=== PATIENT | female | born 1945 | race Caucasian/White ===

== ENCOUNTER 2020-05-25 10:32 | Outpatient (CLI) | payer MEDICARE, OTHER, SELFPAY ==
--- NOTE | ~2020-05-25 | MM_ITS ---
EXAMINATION: MM screening [facility] BI w radha HISTORY: Screening mammogram TECHNIQUE: Craniocaudal and mediolateral oblique 3-D tomosynthesis images were obtained and synthetic 2-D images were generated. CAD analysis was submitted and interpreted. COMPARISON: 05/10/2019, 04/06/2018, 12/09/2016 BREAST PARENCHYMAL COMPOSITION: There are scattered areas of fibroglandular density. FINDINGS: There is no evidence of suspicious mass, calcification, or architectural distortion to sugg est malignancy in either breast. There has been no suspicious interval change. IMPRESSION: 1. No mammographic evidence of malignancy. 2. Recommend routine screening mammography in one year. BI-RADS Category 1: Negative Reviewed, dictated and finalized at location A.
--- NOTE | ~2020-05-25 | CT_ITS ---
EXAMINATION:CT lung screening DATE: 05/25/2020 11:18 INDICATION: Personal history of nicotine dependence. Smoker who quit 15 years ago with 30 pack year h istory. TECHNIQUE: Computed tomography (CT) of the chest was performed without intravenous contrast. Automate d exposure control and iterative reconstruction technique were employed. The dose-length product (DLP ) was 59.41 mGy-cm. COMPARISON: Chest CT 05/10/2019 FINDINGS: There are widespread chronic peripheral reticular opacities in the lungs associated with re latively mild groundglass opacities, consistent with chronic interstitial lung disease in a pattern o f usual interstitial pneumonia (UIP) versus nonspecific interstitial pneumonia (NSIP). No bronchiecta sis or honeycombing. There is mild emphysema. No pleural effusion. The heart size is normal. There ar e coronary artery calcifications. No pericardial effusion. There are gallstones in the gallbladder, w hich is normal in size. There is mild thoracic spondylosis. IMPRESSION: 1. Lung-RADS category 2: Benign appearance or behavior. Reviewed, dictated and finalized at location A.
== END 2020-05-25 10:33 | disposition home or self-care (01) ==
LOC: ANHIMG 10:34
PROVIDERS: PCP Family Medicine; Visit Provider Physician Assistant
DX: Z12.31 Encounter for screening mammogram for malignant neoplasm of breast (principal); Z12.2 Encounter for screening for malignant neoplasm of respiratory organs; Z87.891 Personal history of nicotine dependence
CPT/HCPCS: 77063; 77067; G0297

== ENCOUNTER 2021-06-16 12:10 | Outpatient (CLI) | payer MEDICARE, OTHER, SELFPAY ==
--- NOTE | ~2021-06-16 | MM_ITS ---
EXAMINATION: MM screening [facility] BI w radha HISTORY: Screening mammogram TECHNIQUE: Craniocaudal and mediolateral oblique 3-D tomosynthesis images were obtained and synthetic 2-D images were generated. CAD analysis was submitted and interpreted. COMPARISON: 05/25/2020, 05/10/2019, 04/06/2018 bilateral digital screening mammogram examinations BREAST PARENCHYMAL COMPOSITION: The breasts are heterogeneously dense, which may obscure small masses . FINDINGS: There is a biopsy marker on the left; history of prior benign left breast biopsy. Occasional bilateral calcified microhematomas. There is no evidence of suspicious mass, calcification , or architectural distortion to suggest malignancy in either breast. There has been no suspicious in terval change. IMPRESSION: 1. No mammographic evidence of malignancy. 2. Recommend routine screening mammography in one year. BI-RADS Category 2: Benign finding(s). Reviewed, dictated and finalized at location A.
--- NOTE | ~2021-06-16 | CT_ITS ---
EXAMINATION: CT lung screening DATE: 06/16/2021 13:30 INDICATION: Personal history of nicotine dependence, prior smoker with 50 pack year history TECHNIQUE: Computed tomography (CT) of the chest was performed without intravenous contrast. The dose -length product (DLP) was 59.53 mGy-cm. Automated exposure control and iterative reconstruction techn [employer] were employed. COMPARISON: 05/25/2020 FINDINGS: There are stable, chronic subpleural reticular and groundglass opacities without significan t change usual interstitial pneumonia (UIP) versus nonspecific interstitial pneumonia (NSIP). No susp icious pulmonary nodules are identified. There is no pleural effusion or pneumothorax. No pathologica lly enlarged thoracic lymph nodes are identified. The heart size is normal. There is a small amount o f secretions in the trachea. Stones are present in the nondistended gallbladder. There is a new L1 co mpression fracture. IMPRESSION: 1. Lung-RADS category 1S: Negative. Continue annual screening with noncontrast low-dose chest CT in 1 2 months. 2. Age-indeterminate L1 compression fracture, new since the comparison examination. Reviewed, dictated and finalized at location A. IMPRESSION: 1. Lung-RADS category 1S: Negative. Continue annual screening with noncontrast low-dose chest CT in 12 months. 2. Age-indeterminate L1 compression fracture, new since the comparison examinat ion.
== END 2021-06-16 12:11 | disposition home or self-care (01) ==
PROVIDERS: PCP Family Medicine; Visit Provider Family Medicine
DX: Z12.2 Encounter for screening for malignant neoplasm of respiratory organs (principal); Z12.31 Encounter for screening mammogram for malignant neoplasm of breast; Z87.891 Personal history of nicotine dependence
CPT/HCPCS: 71271; 77063; 77067

== ENCOUNTER 2021-08-04 14:14 | Outpatient (CLI) | payer MEDICARE, OTHER, SELFPAY ==
--- NOTE | ~2021-08-04 | DEXA_ITS ---
Bone Density Report Name: MAXINE AGOSTO Age: 76 Sex: Female Ethnicity: White Date of : 1945 Indication: osteopenia; monitoring treatment; parental hip fracture; height loss; prior fracture; postmenopausal Referring Provider: Tino Khalil Study: Bone densitometry was performed. Exam Date: August 04, 2021 Accession number: [id number] Bone Density: Region BMD T-score Z-score Classification AP Spine (L2, L4) 1.042 -0.3 2.2 Normal Femoral Neck (Left) 0.597 -2.3 -0.1 Osteopenia Total Hip (Left) 0.740 -1.7 0.2 Osteopenia Total Hip Bilateral Avg 0.714 -1.9 0.0 Osteopenia Femoral Neck (Right) 0.610 -2.2 0.0 Osteopenia Total Hip (Right) 0.686 -2.1 -0.2 Osteopenia World Health Organization criteria for BMD impression classify patients as: Normal (T-score at or above -1.0), Osteopenia (T-score between -1.0 and -2.5), or Osteoporosis (T-score at or below -2.5). 10-year Fracture Risk: FRAX not reported because: Prior hip or vertebral fracture Previous Exams: Region Exam Age BMD T-score BMD Change BMD Change Date g/cm2 vs Baseline vs Previous AP Spine(L2, L4) 08/04/2021 76 1.042 -0.3 0.098(10.4%)# 0.124(13.5%)* 05/10/2019 74 0.917 -1.5 -0.026(-2.8%)# -0.014(-1.5%) 11/18/2016 71 0.931 -1.3 -0.013(-1.3%)# 0.057(6.5%)* 04/04/2014 68 0.874 -1.8 -0.069(-7.3%)# -0.144(-14.1%) 02/06/2010 64 1.018 -0.5 0.075(7.9%)* 0.021(2.1%) 01/20/2007 61 0.998 -0.7 0.054(5.7%)* 0.054(5.7%)* 11/05/2004 59 0.944 -1.2 Total Hip(Left) 08/04/2021 76 0.740 -1.7 0.029(4.1%)# 0.048(6.9%)* 05/10/2019 74 0.693 -2.0 -0.018(-2.6%)# -0.035(-4.8%)* 11/18/2016 71 0.728 -1.8 0.017(2.4%)# 0.079(12.1%)* 04/04/2014 68 0.649 -2.4 -0.062(-8.7%)# -0.063(-8.9%)# 02/06/2010 64 0.712 -1.9 0.001(0.2%) -0.037(-4.9%)* 01/20/2007 61 0.749 -1.6 0.038(5.4%)* 0.038(5.4%)* 11/05/2004 59 0.711 -1.9 Total Hip(Right) 08/04/2021 76 0.686 -2.1 -0.040(-5.5%)# -0.063(-8.5%)* 05/10/2019 74 0.750 -1.6 0.023(3.2%)# -0.036(-4.6%)* 11/18/2016 71 0.786 -1.3 0.059(8.1%)# 0.055(7.5%)* 04/04/2014 68 0.731 -1.7 0.004(0.6%)# -0.015(-2.1%)# 02/06/2010 64 0.746 -1.6 0.020(2.7%) -0.011(-1.4%) 01/20/2007 61 0.757 -1.5 0.031(4.2%)* 0.031(4.2%)* 11/05/2004 59 0.727 -1.8 *Denotes significance at 95% confidence level, LSC for AP Spine = 0.022 g/cm2, LSC for Total Hip = 0.027 g/cm2 Clinical Information Provided by Patient:
== END 2021-08-04 14:15 | disposition home or self-care (01) ==
LOC: ANHIMG 14:17
PROVIDERS: PCP Family Medicine; Visit Provider Physician Assistant Medical
DX: Z78.0 Asymptomatic menopausal state (principal); M85.852 Other specified disorders of bone density and structure, left thigh; M85.851 Other specified disorders of bone density and structure, right thigh
CPT/HCPCS: 77080

== ENCOUNTER 2022-06-19 07:29 | Outpatient (CLI) | payer MEDICARE, SELFPAY ==
--- NOTE | ~2022-06-19 | MR_ITS ---
EXAMINATION: MR brain/brain stem wo/w con DATE: 06/19/2022 08:31 INDICATION: Ataxia. TECHNIQUE: Magnetic resonance imaging (MRI) of the brain and brainstem was performed without and with 13 mL MultiHance intravenous contrast. COMPARISON: None. FINDINGS: There are scattered areas of nonspecific increased T2-weighted signal intensity in the cere bral white matter and merry. There are small old infarcts in left cerebellum. There is no intracranial hemorrhage, acute infarction, or abnormal intracranial mass lesion. The ventricles are normal in siz e. There is mucosal thickening in the paranasal sinuses. The orbits are normal. The mastoid air cells are normal. IMPRESSION: 1. 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 2. Moderate nonspecific cerebral white matter disease and pontine disease, which likely represents ch ronic small vessel ischemic disease. Reviewed, dictated and finalized at location A. IMPRESSION: 1. 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 2. Moderate nonspecific cerebral white matter disease and pontine disease, whic h likely represents chronic small vessel ischemic disease.
== END 2022-06-19 07:30 | disposition home or self-care (01) ==
PROVIDERS: PCP Family Medicine; Visit Provider Family Medicine
DX: R27.0 Ataxia, unspecified (principal); R93.0 Abnormal findings on diagnostic imaging of skull and head, not elsewhere classified
CPT/HCPCS: 70553; A9577

== ENCOUNTER 2022-07-11 10:07 | Outpatient (CLI) | payer MEDICARE, SELFPAY ==
--- NOTE | ~2022-07-11 | MM_ITS ---
EXAMINATION: MM screening [facility] BI w radha HISTORY: Screening TECHNIQUE: Craniocaudal and mediolateral oblique 3-D tomosynthesis images were obtained and synthetic 2-D images were generated. CAD analysis was submitted and interpreted. COMPARISON: Comparison to multiple prior studies sequentially, with oldest reviewed study dated 12/21. BREAST PARENCHYMAL COMPOSITION: There are scattered areas of fibroglandular density. FINDINGS: There is developing asymmetry in the subareolar location of the left breast. The right keyanna st is stable without evidence for malignancy. IMPRESSION: 1. Developing left breast asymmetry. 2. Additional mammographic views and possible breast ultrasound are recommended. BI-RADS Category 0: Incomplete: Needs additional imaging evaluation. Reviewed, dictated and finalized at location A. ENTRY INSTRUCTOR IMPRESSION: 1. Developing left breast asymmetry. 2. Additional mammographic views and possible breast ultrasound are recommended . BI-RADS Category 0: Incomplete: Needs additional imaging evaluation.
--- NOTE | ~2022-07-11 | XR_ITS ---
XR hip RT min 3V w AP pelvis DATE: 07/11/2022 11:06 INDICATION: Multiple falls. Pain and cramping and right hip TECHNIQUE: AP pelvis. AP, lateral and crosstable lateral views of right hip COMPARISON: None FINDINGS: There is osteopenia. Normal alignment at the pubic symphysis and sacroiliac joints. Mild bilateral hip osteoarthritis. No fracture or dislocation, avascular necrosis or bone destruction of the right hip. IMPRESSION: Osteopenia Mild bilateral hip osteoarthritis Reviewed, dictated and finalized at location A. E REPAIRER
--- NOTE | ~2022-07-11 | CT_ITS ---
EXAMINATION: CT lung screening DATE: 07/11/2022 10:52 INDICATION: Personal history nicotine dependence, prior smoker with 30 pack year history TECHNIQUE: Computed tomography (CT) of the chest was performed without intravenous contrast. The dose -length product (DLP) was 71.76 mGy-cm. Automated exposure control and iterative reconstruction techn [employer] were employed. COMPARISON: 06/16/2021 FINDINGS: No suspicious pulmonary nodules are identified. Again noted are chronic subpleural reticula r and groundglass opacities which could reflect usual interstitial pneumonia (UIP) versus nonspecific interstitial pneumonia (NSIP). No pleural effusion or pneumothorax. No pathologically enlarged thora cic lymph nodes are identified. The heart size is normal. Calcified coronary artery atherosclerosis i s noted. Stones are present in the nondistended gallbladder. There is a small sliding hiatal hernia. Healed right-sided rib fractures are noted. An L1 compression fracture is not significantly changed. IMPRESSION: 1. Lung-RADS category 1: Negative. Continue annual screening with noncontrast low-dose chest CT in 12 months. Reviewed, dictated and finalized at location F. RAL ARTS TEACHER IMPRESSION: 1. Lung-RADS category 1: Negative. Continue annual screening with noncontrast l ow-dose chest CT in 12 months.
== END 2022-07-11 10:08 | disposition home or self-care (01) ==
LOC: ANHIMG 10:09
PROVIDERS: PCP Family Medicine; Visit Provider Family Medicine
DX: Z12.31 Encounter for screening mammogram for malignant neoplasm of breast (principal); Z12.2 Encounter for screening for malignant neoplasm of respiratory organs; Z87.891 Personal history of nicotine dependence; R92.8 Other abnormal and inconclusive findings on diagnostic imaging of breast; M16.0 Bilateral primary osteoarthritis of hip; M85.851 Other specified disorders of bone density and structure, right thigh
CPT/HCPCS: 71271; 73502; 77063; 77067

== ENCOUNTER 2022-08-01 13:04 | Outpatient (CLI) | payer MEDICARE, SELFPAY ==
--- NOTE | ~2022-08-01 | MM_ITS ---
EXAMINATION: MM diagnostic [facility] LT w radha HISTORY: Left breast asymmetry on screening mammogram TECHNIQUE: Additional 3-D tomosynthesis images of the left breast were performed and synthetic 2-D im ages were generated. CAD analysis was submitted and interpreted. COMPARISON: 07/11/2022, 06/16/2021, 05/25/2020, 05/10/2019, 04/06/2018 FINDINGS: There is a return to baseline fibroglandular appearance with spot compression of the left b reast in the area questioned on screening mammogram. IMPRESSION: 1. No mammographic evidence of malignancy. 2. Recommend routine screening mammography in one year. BI-RADS Category 1: Negative Reviewed, dictated and finalized at location A. PACKER
== END 2022-08-01 13:05 | disposition home or self-care (01) ==
PROVIDERS: PCP Family Medicine; Visit Provider Family Medicine
DX: R92.8 Other abnormal and inconclusive findings on diagnostic imaging of breast (principal)
CPT/HCPCS: 77061; 77065; G0279

== ENCOUNTER 2022-08-10 13:41 | Outpatient (CLI) | payer MEDICARE, OTHER, SELFPAY ==
--- NOTE | ~2022-08-10 | MR_ITS ---
MRI of the right hip Clinical history: Right hip pain Technique: Coronal T1-weighted, T2-weighted, and proton density fat-sat images, and axial T1-weighted and proton-density fat-sat images were acquired through the pelvis. Coronal T2-weighted and proton-d ensity fat-sat images were acquired through the right hip. Sagittal and axial proton density fat-sat images were acquired through the right hip. Findings: There is no fracture, avascular necrosis, or transient osteoporosis of either hip. Bone mar row signals in the proximal femora and visualized pelvic bones are unremarkable. There is moderate right hip joint effusion. There is probable diffuse chondromalacia of the right hip joint with small osteophyte formation at the right femoral head neck junction and from the lateral m argin of the acetabular roof. There is probable minimal edematous change in the right gluteus minimus muscle, as well as in the rig ht pectineus muscle. Remaining musculature demonstrates normal signal intensity. Visualized tendons a ppear intact. No soft tissue mass identified. IMPRESSION: Mild osteoarthritic change of the right hip joint, as detailed above. Moderate right hip joint effusion, nonspecific. This is possibly reactive due to underlying osteoarth ritis. If there is any clinical concern for early septic arthritis, then joint aspiration would be in dicated. No MR evidence for osteomyelitis or bony erosive changes at this time. Minimal edematous change of the right gluteus minimus and right pectineus muscles, nonspecific. No fracture or avascular necrosis. Reviewed, dictated and finalized at location [] DESTRUCTIVE EVALUATION SPECIALIST IMPRESSION: Mild osteoarthritic change of the right hip joint, as detailed above. Moderate right hip joint effusion, nonspecific. This is possibly reactive due t o underlying osteoarthritis. If there is any clinical concern for early septic arthritis, then joint aspiration would be indicated. No MR evidence for osteomy elitis or bony erosive changes at this time. Minimal edematous change of the right gluteus minimus and right pectineus muscl es, nonspecific. No fracture or avascular necrosis.
== END 2022-08-10 13:42 | disposition home or self-care (01) ==
PROVIDERS: PCP Family Medicine; Visit Provider Orthopaedic Surgery
DX: M16.11 Unilateral primary osteoarthritis, right hip (principal); M25.451 Effusion, right hip
CPT/HCPCS: 73721

== ENCOUNTER 2022-10-09 09:31 | Outpatient (CLI) | payer MEDICARE, SELFPAY ==
--- NOTE | ~2022-10-09 | MR_ITS ---
MRI of the lumbar spine Clinical History: Ataxia Technique: Axial T2-weighted images, and sagittal T1-weighted, T2-weighted, and T2 fat-sat images wer e acquired. Findings: Chronic moderate compression fracture deformity of L1 is present, without marrow edema. Chr onic mild compression fracture at the inferior endplate region of L3 present, again, without marrow e angel. No acute bone marrow edema or other bone marrow signal abnormality seen. No subluxation evident . At L1-L2, there is mild facet arthropathy. No definite disc bulge or herniation. No spinal canal sten osis or right neural foraminal narrowing. There is mild left neural foraminal narrowing. At L2-L3, there is mild diffuse disc bulge with mild facet joint hypertrophy. No spinal canal stenosi s or neural foraminal narrowing. At L3-L4, there is disc bulge and facet arthropathy, with minimal central canal stenosis. There is mo derate bilateral neural foraminal narrowing. At L4-L5, there is disc bulge and facet arthropathy. No nina spinal canal stenosis. Bilateral neural foramina are preserved. At L5-S1, there is minimal disc bulge with facet arthropathy. No spinal canal stenosis. Probable mini mal bilateral neural foraminal narrowing. Paravertebral soft tissues are unremarkable. Impression: Chronic compression fractures of L1 and L3, as detailed above. Mild degenerative spondylitic changes, as detailed above. Reviewed, dictated and finalized at [facility]. CAMP COUNSELOR Impression: Chronic compression fractures of L1 and L3, as detailed above. Mild degenerative spondylitic changes, as detailed above.
== END 2022-10-09 09:32 | disposition home or self-care (01) ==
LOC: ANHIMG 09:33
PROVIDERS: PCP Family Medicine; Visit Provider Student in an Organized Health Care Education/Training Program
DX: R27.0 Ataxia, unspecified (principal); M47.816 Spondylosis without myelopathy or radiculopathy, lumbar region; M48.56XA Collapsed vertebra, not elsewhere classified, lumbar region, initial encounter for fracture
CPT/HCPCS: 72148

== ENCOUNTER 2022-11-14 10:10 | Outpatient (CLI) | payer MEDICARE, SELFPAY ==
--- NOTE | 2022-11-14 11:00 | NEURO_ITS ---
Impression: # Complains of right lower extremity weakness. Awaiting right hip surgery. # Normal nerve conduction study. # Decreased motor unit potentials without neurogenic changes in right Quad could be related to disuse due to pain. # Clinical correlation recommended. Motor Nerve Conduction Lower Extremities Peroneal Nerve Conduction Velocity (m/sec) Terminal Latency (msec) Response Voltage(mV) Popliteal space-Ankle Ankle Extensor Dig Brevis Popliteal space Ankle Right 45 4.5 1 1 Left 46 4.0 1 2 Tibial Nerve Conduction Velocity (m/sec) Terminal Latency (msec) Response Voltage(mV) Popliteal space-Ankle Ankle-Extensor Dig Brevis Popliteal space Ankle Right 43 4.6 1 1 Left 45 4.7 2 1 F-waves Peroneal Nerve (ms) Tibial Nerve (ms) Right 54.9 54.5 Left 54.9 55.4 Sensory Nerve Conduction Lower Extremities Sural Nerve Stimulation Terminal Latency (msec) Ankle Response Voltage (uV) Ankle Response Velocity (m/sec) Right 4.0 16 40 Left 3.8 8 42 Superficial Peroneal Nerve Stimulation Terminal Latency (msec) Ankle Response Voltage (uV) Ankle Response Velocity (m/sec) Right 3.6 15 44 Left 3.9 10 41 Left Right Muscles Examined Fibrillation Fasciculation Scarcity Voltage Duration Left Right Left Right Left Right Left Right Left Right X X Ant Tibialis X X Gastroc X X Fibularis Long X X Flex Dig Long X X Ext Dig Brev Abd Hallucis X X Quadriceps Paraspinals MTDD
== END 2022-11-14 10:11 | disposition home or self-care (01) ==
LOC: ANHNEURO 10:14
PROVIDERS: PCP Family Medicine; Visit Provider Student in an Organized Health Care Education/Training Program
DX: R26.89 Other abnormalities of gait and mobility (principal)
CPT/HCPCS: 95886; 95910

== ENCOUNTER 2022-12-16 12:00 | Outpatient (CLI) | payer MEDICARE, SELFPAY ==
--- NOTE | ~2022-12-16 | XR_ITS ---
EXAMINATION: XR lg joint inject/asp w image DATE: 12/16/2022 13:19 INDICATION: Right hip osteoarthritis. TECHNIQUE: A time-out was performed to verify the patient's name, date of , and procedure to b e performed. The procedure including the risks, benefits, and alternatives was discussed with the pat ient. Risks discussed included bleeding and infection. The patient understood the risks and agreed to proceed. The skin overlying the right hip joint was prepped and draped in usual sterile fashion. A nesthetic was administered with 0.5% Marcaine subcutaneously. A 22 G needle was advanced under fluor oscopic guidance into the joint. Injection of 1 mL of Omnipaque 240 confirmed intra-articular positi on of the needle. Subsequently, injectate consisting of 3 mL of a 2:1 mixture of 0.5% Marcaine: 80 m g/mL Depo-Medrol for a total dosage of 80 mg Depo-Medrol was instilled. Washout of contrast was seen confirming intra-articular administration. The needle was removed and the entry site was cleaned and dressed. There were no immediate complications. Fluoroscopy exposure time was 0.2 minutes. The total number of images was 2. FINDINGS: Real-time fluoroscopy demonstrates the needle in the right hip joint. Patient's pain prior to procedure:8/10. Patient's pain following the procedure: 6/10. IMPRESSION: 1. Successful right hip joint injection of local anesthetic and steroid with mild decrease in the pat ient's presenting pain. Reviewed, dictated and finalized at location A. IMPRESSION: 1. Successful right hip joint injection of local anesthetic and steroid with mi ld decrease in the patient's presenting pain.
== END 2022-12-16 12:01 | disposition home or self-care (01) ==
PROVIDERS: PCP Family Medicine; Visit Provider Nurse Practitioner Family
DX: M16.11 Unilateral primary osteoarthritis, right hip (principal)
CPT/HCPCS: 20610; 77002; J1040; Q9966

== ENCOUNTER 2023-01-13 12:00 | Outpatient (CLI) | payer MEDICARE, SELFPAY ==
--- NOTE | ~2023-01-13 | US_ITS ---
US renal BI 01/13/2023 12:35 Procedure: Realtime transabdominal ultrasound of the kidneys and bladder. Indication: Abnormal renal function tests Comparison: 04/28/2017 Findings: Renal echotexture is normal bilaterally without hydronephrosis, contour deforming mass or r enal calculus. There is a right renal cyst measuring 7 mm. The right kidney measures 8.6 cm and left kidney measures 9.4 cm. Bladder within normal limits. Impression: 1: Unremarkable renal ultrasound. No stones, masses or hydronephrosis. Reviewed, dictated and finalized at location B. Impression: 1: Unremarkable renal ultrasound. No stones, masses or hydronephrosis.
== END 2023-01-13 12:01 | disposition home or self-care (01) ==
PROVIDERS: PCP Family Medicine; Visit Provider Internal Medicine Nephrology
DX: R94.4 Abnormal results of kidney function studies (principal); N18.31 Chronic kidney disease, stage 3a
CPT/HCPCS: 76775

== ENCOUNTER 2023-02-05 16:26 | Emergency (ER) | payer MEDICARE, SELFPAY ==
[2023-02-05] VITALS (7 sets, daily range): BP systolic 166–184; BP diastolic 73–105; PULSE 83–97; RESP 18–20; TEMP 36.8; O2SAT 96–97
--- NOTE | ~2023-02-05 | XR_ITS ---
XR chest 1V DATE: 02/05/2023 16:39 INDICATION: Cerebrovascular accident TECHNIQUE: AP chest on 02/05/2023 at 1637 hours COMPARISON: 07/11/2022 CT chest FINDINGS: Increased density at posterior right eighth and ninth ribs associated with callus formation from old rib fractures, confirmed on 07/11/2022 CT thorax. There are old left rib fractures as well. There is osteopenia. Heart size is within normal limits. Is aortic calcification and unfolding. No hilar or mediastinal en largement. No pulmonary infiltrate or consolidation, pleural effusion or pulmonary vascular congestion or pneumo thorax. IMPRESSION: No active cardiac pulmonary disease Aortic atherosclerosis Reviewed, dictated and finalized at location A.
--- NOTE | ~2023-02-05 | CT_ITS ---
EXAMINATION: CTA brain carotid DATE: 02/05/2023 18:42 INDICATION: Acute cerebrovascular accident. TECHNIQUE: Computed tomographic angiography (CTA) of the head was performed with 100 mL Omnipaque-350 intravenous contrast. CTA of the neck was performed with intravenous contrast. Automated exposure co ntrol and iterative reconstruction technique were employed. The dose-length product was 1111.53 mGy-c m. Maximum intensity projection and volume rendered 3D-reconstructions were created by the technologi st on a separate workstation. COMPARISON: Head CT 02/05/2023, brain MRI 06/19/2022 FINDINGS: HEAD CTA: There are scattered areas of low attenuation in the cerebral white matter. There are small old infarcts in left cerebellum. There is no acute ischemic infarct or abnormal mass lesion. The vent ricles are normal in size. The orbits are normal. There is mucosal thickening in the paranasal sinuse s. There is thickening and sclerosis of the allan of the maxillary sinuses, which may be old fracture s or chronic sinusitis. The mastoid air cells are normal. The vertebral arteries are codominant. Ther e is no significant stenosis of basilar artery or the posterior cerebral arteries. There is no signif icant stenosis of the intracranial internal carotid arteries or anterior or middle cerebral arteries. Anterior communicating artery is normal. There is a 2 mm infundibulum at the origin of right posteri or communicating artery. Left posterior communicating artery is normal. There is no aneurysm. NECK CTA: There is mild emphysema. There is mild scarring at the lung apices. There are no pathologic ally enlarged lymph nodes. There is no significant stenosis of the vertebral arteries. There is plaqu e in the proximal internal carotid arteries. There is 0% stenosis of the proximal right internal gtz tid artery relative to normal distal artery lumen diameter (NASCET criteria). There is 0% stenosis of the proximal left internal carotid artery relative to normal distal artery lumen diameter. There is severe cervical spondylosis. IMPRESSION: 1. Small old infarcts in the left cerebellum. 2. Moderate nonspecific cerebral white matter disease, which likely represents chronic small vessel i schemic disease. 3. No aneurysm or significant intracranial internal stenosis. 4. 0% stenosis of the proximal internal carotid arteries relative to normal distal artery lumen diame ters (NASCET criteria). Reviewed, dictated and finalized at location A. IMPRESSION: 1. Small old infarcts in the left cerebellum. 2. Moderate nonspecific cerebral white matter disease, which likely represents chronic small vessel ischemic disease. 3. No aneurysm or significant intracranial internal stenosis. 4. 0% stenosis of the proximal internal carotid arteries relative to normal dis flo artery lumen diameters (NASCET criteria).
--- NOTE | ~2023-02-05 | CT_ITS ---
EXAMINATION: CT brain wo con DATE: 02/05/2023 16:36 INDICATION: Left hemiparesis. Hypertension. TECHNIQUE: Computed tomography (CT) of the head was performed without intravenous contrast. The mA wa s adjusted according to patient size. Iterative reconstruction technique was employed. Exam dose: 75 6.67 mGy-cm total exam DLP. COMPARISON: 05/24/2008 CT brain FINDINGS: Examination is limited by patient motion. There are bilateral vertebral artery and particularly prominent bilateral carotid siphon artery calci fications. Is nonspecific diminished attenuation of the cerebral white matter, likely due to chronic small vessel ischemic changes. There is central and cortical cerebral atrophy. No intracranial mass lesion or hemorrhage, midline shift or mass effect effect or subdural or epidura l hematoma is detected. There is some irregular soft tissue thickening in the posterior left maxillary antrum and mild fluid and/or soft tissue thickening in the posterior aspect of each sphenoid sinus. The paranasal sinuses a nd mastoid air cells are otherwise unremarkable. No fracture or bone destruction of the cranial vault. IMPRESSION: Cerebral atherosclerosis and chronic small vessel ischemic changes of the cerebral white matter Central and cortical cerebral atrophy No acute intracranial finding Reviewed, dictated and finalized at Location A. Reviewed, dictated and finalized at location A.
--- NOTE | 2023-02-05 16:28 | ECG_ITS ---
Measurements Intervals [place] Rate: 76 P: 51 NH: 178 QRS: 45 QRSD: 73 T: 47 QT: 356 QTc: 402 Interpretive Statements SINUS RHYTHM NORMAL ELECTROCARDIOGRAM NO PREVIOUS ECG AVAILABLE FOR COMPARISON Electronically Signed On 02-06-2023 11:17:17 CDT by Vitaly Rios M.D.
--- NOTE | 2023-02-05 16:55 | ED.NEUROSD ---
HPI - Neuro Symptoms/Deficit General Chief Complaint: Suspected CVA Stated Complaint: cva Time Seen by Provider: 02/05/23 16:39 Source: patient, family and EMS Mode of arrival: EMS History of Present Illness HPI Narrative: 77 years old white female came to the emergency room from home by ambulance because of slurred speech and weakness of the left upper extremity. Patient reports could not sleep all night long because of chronic exaggeration of pain at the right hip area secondary to rheumatoid arthritis. 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 Patient has been noticed that the patient's speech a little bit slurry at 2 PM. Last time he carried a normal conversation with her was 2 hours earlier. Basically at 12 noon. Currently patient feels that the weakness of the left upper extremity is a little bit better than before but still weak. People unable to manage moving her fingers or to extend her fingers.. History of rheumatoid arthritis, hypertension, hyperlipidemia patient currently on aspirin, been on steroids for over 1 year, currently on 7 mg daily. Her blind escort at [facility]. She denies any tingling or numbness or headache or recent trauma. Last hydrocodone intake was 5 PM last night. Related Data Home Medications Medication Instructions Recorded Confirmed aspirin 81 mg tablet,delayed 81 mg PO DAILY 10/02/19 09/07/22 release (Adult Low Dose Aspirin) latanoprost 0.005 % eye drops 1 drop ophthalmic (eye) DAILY 10/02/19 09/07/22 [id number]-[id number] 1 tablet PO DAILY 12/07/21 09/07/22 tablet (Multivitamin 50 Plus tablet) ascorbate calcium (vitamin C) 500 500 mg PO DAILY 08/10/22 09/07/22 mg tablet biotin 5,000 mcg disintegrating 5,000 mcg PO DAILY 08/10/22 09/07/22 tablet calcium carbonate 600 mg-vitamin 1 tablet PO DAILY 08/10/22 09/07/22 D3 10 mcg (400 unit) tablet (Calcium 600 + D(3)) denosumab 60 mg/mL subcutaneous 60 mg subcut [id number] 08/10/22 09/07/22 syringe (Prolia) prednisone 10 mg tablet 7 mg PO DAILY 09/21/22 leflunomide 10 mg tablet 10 mg PO DAILY 11/30/22 Allergies Allergy/AdvReac Type Severity Reaction Status Date / Time lidocaine Allergy Unknown Spasms Verified 02/05/23 17:04 tramadol Allergy Unknown Nausea Verified 02/05/23 17:04 trolamine salicylate Allergy Unknown Spasms Verified 02/05/23 17:04 [Aspercreme] Review of Systems Review of Systems: All systems reviewed & are unremarkable except as noted in HPI and below PMFSH Past Medical History Medical History Arthritis of right hip Degenerative joint disease (DJD) of hip Dental infection Family history of alpha 1 antitrypsin deficiency Giant cell aortic arteritis Nicotine dependence Osteoporosis Squamous cell carcinoma Temporal arteritis TIA (transient ischemic attack) Surgical History Surgical History History of foot surgery History of oral surgery History of temporal artery biopsy Family History Family History Grandparent Family history of glaucoma Family history of aortic aneurysm Hypertension Mother Family history of glaucoma, Onset Age: 93 Hypertension, Onset Age: 93 Father Hypertension, Onset Age: 78 Family history of aortic aneurysm, Onset Age: 78 Other Cerebrovascular accident Family history of osteoporosis Social History Social History Social History: Caffeine-coffee daily Years smoked: 50 Smoking status: Current every day smoker Tobacco type: cigarettes Second hand tobacco smoke exposure: Yes Alcohol intake: current Substance use: never Substance use type: does not use Lack of Transportation: No Lack of Food: Never True Current Ho
[2023-02-05 17:09] LABS: Glucose Point of Care 83 mg/dl (65-105)
[2023-02-05 17:19] LABS: Basophils Absolute Auto 0.1 K/mm3 (0.0-0.1); Basophils Percent Auto 0.8 % (0.2-1.2); Eosinophils Absolute Auto 0.5 K/mm3 (0-0.3); Eosinophils Percent Auto 6.1 % (0-4.4); Hematocrit 37.8 % (37.0-47.0); Hemoglobin 12.4 g/dL (12.0-15.0); Immature Granulocyte Absolute 0.03 K/mm3 (0.00-0.031); Immature Granulocyte Percent A 0.4 % (0-0.5); Lymphocytes Absolute Auto 1.31 K/mm3 (0.9-3.2); Lymphocytes Percent Auto 16.7 % (18.3-44.2); Mean Corpuscular HGB Conc 32.8 g/dl (32-36); Mean Corpuscular Hemoglobin 31.6 pg (26-34); Mean Corpuscular Volume 96.4 fl (80-100); Mean Platelet Volume 10.9 fl (7.4-10.4); Monocytes Absolute Auto 0.8 K/mm3 (0.1-0.6); Monocytes Percent Auto 10.6 % (2.6-8.5); Neutrophils Absolute Auto 5.2 K/mm3 (1.3-6.7); Neutrophils Percent Auto 65.4 % (45.5-73.1); Platelet Count Result 172 k/mm3 (150-375); Red Blood Count 3.92 M/mm3 (4.2-5.4); Red Cell Distribution Width 13.4 % (11.5-14.5); White Blood Count 7.9 K/mm3 (4.5-10.0)
[2023-02-05 17:29] LABS: INR 0.9; Prothrombin Time 12.8 Seconds (11.1-14.7)
[2023-02-05 17:30] LABS: Partial Thromboplastin Time 25.2 SECONDS (22.3-36.8)
[2023-02-05] MEDS: ASPIRIN 325 MG TABLET PO (17:56)
[2023-02-05 18:00] LABS: Alanine Aminotransferase 26 U/L (6-35); Albumin Level 3.7 g/dL (3.5-5.1); Alkaline Phosphatase 61 U/L (38-126); Anion Gap 1 mmol/L (8-16); Aspartate Amino Transferase 34 U/L (14-36); Bilirubin,Total 0.7 mg/dL (0.2-1.3); Blood Urea Nitrogen 18 mg/dL (7-17); Carbon Dioxide 30 mmol/L (22-30); Chloride 104 mmol/L (98-107); Estimated CRCL calculation 31 ml/min; Estimated Glomerular Filt Rate 48; Glucose 85 mg/dL (65-110); Potassium 3.9 mmol/L (3.4-5.0); Sodium 135 mmol/L (137-145)
[2023-02-05 18:11] LABS: Troponin I < 0.012 ng/mL (0.000-0.034)
--- NOTE | 2023-02-05 19:30 | PC.NURSE ---
This RN assumed care of patient.
--- NOTE | 2023-02-05 20:43 | ECG_ITS ---
Measurements Intervals [place] Rate: 94 P: 62 AR: 165 QRS: 56 QRSD: 78 T: 41 QT: 344 QTc: 430 Interpretive Statements SINUS RHYTHM NORMAL ELECTROCARDIOGRAM COMPARED TO ECG 02/05/2023 16:59:23 NO DIFFERENCE Electronically Signed On 02-10-2023 13:12:19 CDT by Vitaly Rios M.D.
--- NOTE | 2023-02-05 20:50 | PC.NURSE ---
This RN attempted to call report the [facility] ER at [phone] and was unsuccessful.
--- NOTE | 2023-02-05 21:00 | PC.NURSE ---
This RN gave report to Ina in the ED at [facility] ER.
== END 2023-02-05 21:09 | disposition short-term general hospital (02) ==
LOC: ANHED 17:27
PROVIDERS: Emergency Medicine; Emergency Provider Emergency Medicine; PCP Family Medicine
DX: I63.9 Cerebral infarction, unspecified (principal); R29.708 NIHSS score 8; I10 Essential (primary) hypertension; E78.5 Hyperlipidemia, unspecified; M06.9 Rheumatoid arthritis, unspecified; M31.6 Other giant cell arteritis; M16.11 Unilateral primary osteoarthritis, right hip; M81.0 Age-related osteoporosis without current pathological fracture; Z85.828 Personal history of other malignant neoplasm of skin; Z86.73 Personal history of transient ischemic attack (TIA), and cerebral infarction without residual deficits; Z79.82 Long term (current) use of aspirin; F17.210 Nicotine dependence, cigarettes, uncomplicated; I70.0 Atherosclerosis of aorta; I67.2 Cerebral atherosclerosis
CPT/HCPCS: 36415; 70450; 70496; 70498; 71045; 80053; 82948; 84484; 85025; 85610; 85730; 93005; 99285; A9270; Q9967

== ENCOUNTER 2023-02-09 09:50 | Inpatient (IN) | payer MEDICARE, SELFPAY ==
[2023-02-09] VITALS (24 sets, daily range): BP systolic 118–155; BP diastolic 60–80; PULSE 78–123; RESP 14–24; TEMP 36.3–36.6; O2SAT 95–98; BMI 20.7
--- NOTE | ~2023-02-09 | US_ITS ---
EXAMINATION: US carotid duplex BI DATE: 02/09/2023 22:59 INDICATION: Syncope. TECHNIQUE: Grayscale, color Doppler, and pulsed Doppler images of the cervical carotid arteries were obtained. The degree of vessel stenosis is placed in one of the following categories: normal, <50%, 5 0-69%, >=70% but less than near-occlusion, near-occlusion, or total occlusion. Note that percent sten osis relative to normal distal artery lumen diameter is indirectly measured from velocity measurement s as described by Sina, et al. Radiology 2003; 229:340-346. COMPARISON: CT abdomen and 02/05/2023 FINDINGS: RIGHT: The right common carotid artery (CCA) peak systolic velocity (PSV) is 69 cm/s. The right internal car otid artery (ICA) PSV is 74 cm/s. The right ICA end-diastolic velocity (EDV) is 18 cm/s. The right IC A/CCA PSV ratio is 1.1. Grayscale and color Doppler images yield an estimate of <50% diameter reducti on from plaque in the ICA. There is antegrade flow in the right vertebral artery. LEFT: The left CCA PSV is 44 cm/s. The left ICA PSV is 64 cm/s. The left ICA EDV is 12 cm/s. The left ICA/C CA PSV ratio is 1.4. Grayscale and color Doppler images yield an estimate of <50% diameter reduction from plaque in the ICA. There is antegrade flow in the left vertebral artery. IMPRESSION: 1. <50% stenosis in the right internal carotid artery. 2. <50% stenosis in the left internal carotid artery. Reviewed, dictated and finalized at location A.
--- NOTE | ~2023-02-09 | MR_ITS ---
EXAMINATION: MR brain/brain stem wo con DATE: 02/10/2023 13:37 INDICATION: Syncope. TECHNIQUE: Magnetic resonance imaging (MRI) of the brain and brainstem was performed without intraven ous contrast. COMPARISON: Brain MRI 06/19/2022, CT 02/09/2023 FINDINGS: There are patchy areas of acute infarct involving the right temporoparietal occipital regio n. There are small old infarcts in left cerebellum. There is no intracranial hemorrhage or abnormal m ass lesion. There are scattered areas of nonspecific increased T2-weighted signal intensity in the ce rebral white matter and merry. The ventricles are normal in size. The paranasal sinuses are clear. The orbits are normal. The mastoid air cells are normal. IMPRESSION: 1. Acute infarcts in right temporal parietal occipital region. 2. 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 3. Moderate nonspecific cerebral white matter disease and pontine disease, which likely represents ch ronic small vessel ischemic disease. Reviewed, dictated and finalized at location A. IMPRESSION: 1. Acute infarcts in right temporal parietal occipital region. 2. 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 3. Moderate nonspecific cerebral white matter disease and pontine disease, whic h likely represents chronic small vessel ischemic disease.
--- NOTE | ~2023-02-09 | XR_ITS ---
XR hip RT 2V w AP pelvis 02/10/2023 13:49 Indication: Right hip pain Procedure: 3 views right hip including AP pelvis Comparison: 09/07/2022 Findings: Severe osteoarthritis of the right hip. There is been remodeling of the femoral head with u nderlying sclerosis, consistent with avascular necrosis. No acute fracture is identified. No soft tis sivan abnormality. No foreign bodies. Impression: 1: Remodeling of the right femoral head developing sclerosis, consistent with avascular necrosis. 2: Severe osteoarthritis of the right hip. Reviewed, dictated and finalized at location [] Impression: 1: Remodeling of the right femoral head developing sclerosis, consistent with a vascular necrosis. 2: Severe osteoarthritis of the right hip.
--- NOTE | ~2023-02-09 | CT_ITS ---
EXAMINATION: CT brain wo con DATE: 02/09/2023 11:50 INDICATION: Syncope. CVA. TECHNIQUE: Computed tomography (CT) of the head was performed without intravenous contrast. The dose- length product was 529.67 mGy-cm. Automated exposure control and iterative reconstruction technique w ere employed. COMPARISON: CTA dated 02/05/2023 FINDINGS: Mild generalized atrophy. There are scattered moderate periventricular and subcortical whit e matter changes, most likely related to small vessel ischemic disease (microangiopathy). No ventricu lomegaly or midline shift. Basilar cisterns are patent. No acute infarction, hemorrhage, mass or mass effect. There is intracranial atherosclerosis. There is mucosal thickening of the left maxillary sin us and sphenoid sinus. Mastoids are pneumatized. No depressed skull fracture. Midline sagittal images demonstrate a normal corpus callosum and craniovertebral junction. IMPRESSION: 1. No acute intracranial abnormality. No significant interval change. 2: Mild sinusitis. Reviewed, dictated and finalized at location L.
--- NOTE | 2023-02-09 10:00 | ECG_ITS ---
Measurements Intervals [place] Rate: 81 P: 39 MT: 154 QRS: 44 QRSD: 85 T: 42 QT: 378 QTc: 441 Interpretive Statements SINUS RHYTHM NONSPECIFIC ST & T-WAVE ABNORMALITY COMPARED TO ECG 02/05/2023 20:43:45 NO SIGNIFICANT CHANGES Electronically Signed On 02-09-2023 13:53:01 CDT by Lennie Camacho M.D.
[2023-02-09 10:27] LABS: Basophils Percent Auto 0.4 % (0.2-1.2); Eosinophils Absolute Auto 0.5 K/mm3 (0-0.3); Eosinophils Percent Auto 5.8 % (0-4.4); Hematocrit 41.7 % (37.0-47.0); Hemoglobin 13.7 g/dL (12.0-15.0); Immature Granulocyte Absolute 0.04 K/mm3 (0.00-0.031); Immature Granulocyte Percent A 0.4 % (0-0.5); Lymphocytes Absolute Auto 1.19 K/mm3 (0.9-3.2); Lymphocytes Percent Auto 13.3 % (18.3-44.2); Mean Corpuscular HGB Conc 32.9 g/dl (32-36); Mean Corpuscular Hemoglobin 31.9 pg (26-34); Mean Platelet Volume 10.4 fl (7.4-10.4); Monocytes Absolute Auto 0.9 K/mm3 (0.1-0.6); Monocytes Percent Auto 10.2 % (2.6-8.5); Neutrophils Absolute Auto 6.3 K/mm3 (1.3-6.7); Neutrophils Percent Auto 69.9 % (45.5-73.1); Platelet Count Result 189 k/mm3 (150-375); Red Cell Distribution Width 13.4 % (11.5-14.5)
[2023-02-09 10:50] LABS: Alanine Aminotransferase 51 U/L (6-35); Albumin Level 3.8 g/dL (3.5-5.1); Alkaline Phosphatase 69 U/L (38-126); Anion Gap 5 mmol/L (8-16); Aspartate Amino Transferase 80 U/L (14-36); Bilirubin,Total 0.7 mg/dL (0.2-1.3); Blood Urea Nitrogen 19 mg/dL (7-17); Calcium 8.8 mg/dL (8.4-10.2); Carbon Dioxide 26 mmol/L (22-30); Chloride 103 mmol/L (98-107); Estimated CRCL calculation 24 ml/min; Estimated Glomerular Filt Rate 34; Glucose 86 mg/dL (65-110); Potassium 3.5 mmol/L (3.4-5.0); Sodium 134 mmol/L (137-145)
[2023-02-09 11:04] LABS: Troponin I 0.086 ng/mL (0.000-0.034)
--- NOTE | 2023-02-09 11:35 | ED.DIZZY ---
HPI - Dizziness General Chief Complaint: Syncope <HALINA Lowe Last Filed: 02/09/23 12:56> Stated Complaint: episode of unresponsiveness <HALINA Lowe Last Filed: 02/09/23 12:56> Time Seen by Provider: 02/09/23 10:20 <HALINA Lowe Last Filed: 02/09/23 12:56> Source: patient, family and old records reviewed <HALINA Lowe Last Filed: 02/09/23 12:56> Mode of arrival: EMS <HALINA Lowe Last Filed: 02/09/23 12:56> Limitations: no limitations <HALINA Lowe Last Filed: 02/09/23 12:56> History of Present Illness HPI Narrative: Patient is a 77-year-old female who presents to the ED via EMS with report of syncope. Patient reports she was diagnosed with a CVA on Monday. She was seen in the ED here and transferred to [facility]. She was started on Plavix at that time. Since yesterday, patient has been residing at [facility]. Patient experienced vomiting after eating breakfast this morning. She then felt like she needed to have a bowel movement. She was able to pass a very small amount of stool but then had a syncopal episode which was witnessed by her . He states all of a sudden she became limp and passed out. She did not lose consciousness for very long. She then began vomiting again after the syncopal episode. EMS was called. Patient denies any new weakness or numbness in her extremities. She does have a left wrist drop and chronic pain in her right hip from a currently inoperable right hip fracture. Patient denies any other concerns at this time. Denies dizziness, lightheadedness, vision changes, nausea, vomiting, chest pain, difficulty breathing, headache. <HALINA Lowe Last Filed: 02/09/23 12:56> Related Data Home Medications: Home Medications Medication Instructions Recorded Confirmed aspirin 81 mg tablet,delayed 81 mg PO DAILY 10/02/19 02/09/23 release (Adult Low Dose Aspirin) leflunomide 10 mg tablet 10 mg PO DAILY 11/30/22 02/09/23 amlodipine 10 mg tablet 10 mg PO DAILY 02/09/23 02/09/23 calcium citrate 200 mg (950 mg) 200 mg PO DAILY 02/09/23 02/09/23 tablet clopidogrel 75 mg tablet 75 mg PO DAILY 02/09/23 02/09/23 hydralazine 50 mg tablet 50 mg PO TID PRN SBP >180 02/09/23 02/09/23 metoprolol succinate 50 mg 50 mg PO DAILY 02/09/23 02/09/23 tablet,extended release 24 hr prednisone 1 mg tablet 7 mg PO DAILY 02/09/23 02/09/23 <HALINA Lowe Last Filed: 02/09/23 12:56> Allergies/Adverse Reactions: Allergies Allergy/AdvReac Type Severity Reaction Status Date / Time lidocaine Allergy Unknown Spasms Verified 02/05/23 17:04 tramadol Allergy Unknown Nausea Verified 02/05/23 17:04 trolamine salicylate Allergy Unknown Spasms Verified 02/05/23 17:04 [Aspercreme] <HALINA Lowe Last Filed: 02/09/23 12:56> Review of Systems Review of Systems: CONSTITUTIONAL: Denies fever, chills, or sweats. EYES: Denies visual changes. CARDIOVASCULAR: Denies chest pain. RESPIRATORY: Denies dyspnea. GASTROINTESTINAL: Denies abdominal pain, nausea, vomiting. MUSCULOSKELETAL: See HPI. NEUROLOGIC: See HPI. <HALINA Lowe Last Filed: 02/09/23 12:56> All systems reviewed & are unremarkable except as noted in HPI and below <HALINA Lowe Last Filed: 02/09/23 12:56> [facility] Past Medical History Medical History: Medical History Arthritis of right hip Chronic kidney disease Degenerative joint disease (DJD) of hip Dental infection Elevated troponin Family history of abdominal aortic aneurysm (AAA) Family history of alpha 1 antitrypsin deficiency Giant cell aortic arteritis Glaucoma Macular degeneration Nicotine dependence Osteoporosis Rheumatoid arthritis Squamous cell carcinoma Temporal arteritis TIA (transient is
[2023-02-09] MEDS: SODIUM CHLORIDE 0.9% IV 1,000 ML 999 ML IV CONT (12:24)
[2023-02-09] MEDS: ACETAMINOPHEN 325 MG TABLET 650 MG PO ×2 (12:44→20:26)
[2023-02-09 14:29] LABS: Troponin I 0.077 ng/mL (0.000-0.034)
--- NOTE | 2023-02-09 15:09 | ADMGEN ---
This patient, Alexa Blair, was admitted to IMU Room 204-01 on02/09/23 at 1405. Patient/family oriented to hospital policies and general routines including ID bracelet, bed and alarms, visiting hours, pain management, procedures, bathroom and other care routines, personal items, smoking policy, room service/diet, and visiting hours. Information on how to activate the Rapid Response Team has been discussed. Patient/Family are encouraged to report perceived risks to care and to ask questions if they do not understand what they are told or what they should do.
[2023-02-09 17:15] LABS: Troponin I 0.072 ng/mL (0.000-0.034)
--- NOTE | 2023-02-09 17:20 | PM.IMHP ---
H&P: HPI History of Present Illness Date/Time: 02/09/23 17:20 Chief Complaint: Syncope Narrative: This is a 77-year-old female patient who is currently at [facility] for an operable right hip fracture. The patient also stated that she had a CVA and her left hand is flaccid although she can move her left arm. The patient stated that she went to [facility]. She was started on Plavix at that time. The patient stated that she was encouraged to use the restroom today after eating breakfast. The patient was able to pass very small amount of stool and then had a syncopal episode on the toilet. The patient stated she was not out very long. She be and to vomit and became limp and passed out. EMS was activated. She denied any new weakness. She is not able to stand due to her hip fracture. Sodium is 134. It BUN is 19 creatinine 1.5. Troponin 0.086, 0.087, and 0.072. The patient denies any chest pain. The patient was given IV fluids and Tylenol in the emergency room. The patient is being admitted to observation status on the date of service of 02/09/2023. Review of Systems Review of Systems: All systems reviewed & are unremarkable except as noted in HPI and below Constitutional: Constitutional: Reports as per HPI and Reports no additional constitutional complaints Eyes: Eyes: Reports as per HPI and Reports no additional eye complaints ENT: Reports system reviewed and no additional complaints, except as documented and Reports Normal hearing present Cardiovascular: Cardiovascular: Reports no additional cardiovascular complaints Respiratory: Respiratory: Reports no additional respiratory complaints and Reports no additional respiratory complaints Gastrointestinal: Gastrointestinal: Reports as per HPI and Reports no additional gastrointestinal complaints Musculoskeletal: Musculoskeletal: Reports no additional musculoskeletal complaints Integumentary/Breasts: Skin/Breast: Reports system reviewed and no additional complaints, except as docu and Reports as per HPI Neurologic: Reports system reviewed and no additional complaints, except as documented, Reports as per HPI and Reports Normal hearing present Psychiatric: Psychiatric: Reports no additional psychiatric complaints and Reports as per HPI Endocrine: Endocrine: Reports no additional endocrine complaints Hematologic/Lymphatic: Hematologic/Lymphatic: Reports no additional hematologic/lymphatic complaints Allergic/Immunologic: Allergic/Immunologic: Reports no additional allergic/immunologic complaints [facility] Past Medical History Medical History (Updated 02/09/23 @ 20:47 by Jeannette Shepard NP) Arthritis of right hip Chronic kidney disease Degenerative joint disease (DJD) of hip Dental infection Family history of abdominal aortic aneurysm (AAA) Family history of alpha 1 antitrypsin deficiency Giant cell aortic arteritis Glaucoma Macular degeneration Nicotine dependence Osteoporosis Rheumatoid arthritis Squamous cell carcinoma Temporal arteritis TIA (transient ischemic attack) Surgical History Surgical History History of foot surgery History of oral surgery History of temporal artery biopsy Family History Family History Grandparent Family history of glaucoma Family history of aortic aneurysm Hypertension Cerebrovascular accident Diabetes mellitus Mother Family history of glaucoma, Onset Age: 93 Hypertension, Onset Age: 93 Family history of osteoporosis Father Family history of aortic aneurysm, Onset Age: 78 Hypertension, Onset Age: 78 Cerebrovascular accident Sibling GERD (gastroesophageal reflux disease) COPD (chronic obstructive pulmonary disease) Social History Social History (Updated 02/09/23 @ 20:21 by Jeannette Shepard NP) Social History: Caffeine-coffee daily. The patient is an
[2023-02-09] MEDS: ATORVASTATIN 40 MG TABLET PO (20:26)
[2023-02-09] MEDS: SILVER SULFADIAZINE 1% CR 50 GM JAR (*BKC) 1 APPLIC TOPICAL (23:14)
[2023-02-10] VITALS (15 sets, daily range): BP systolic 113–155; BP diastolic 60–85; PULSE 67–121; RESP 16–20; TEMP 36.4–36.8; O2SAT 94–99; BMI 20.7
--- NOTE | 2023-02-10 | ECHO_ITS ---
Patient Info Name: Alexa Blair Age: 77 years : 1945 Gender: Female Ht: 64 in Wt: 120 lbs BSA: 1.57 m2 HR: 92 bpm BP: 154 / 74 mmHg Heart Rhythm: Sinus Rhythm Technical Quality: Fair Exam Date: 02/10/2023 9:35 AM Exam Location: [facility] Patient Status: Inpatient Admit Date: 02/09/2023 Staff Ordering Physician: Jeannette Shepard NP Cryptological Technician: Tianna Brand RDCS Attending Provider: Yakelin Carreno DO Referring Physician: Devyn MOROCHO; Exam Type: CA echo doppler color flow Study Info Indications R55 - Syncope and collapse Complete two-dimensional, color flow and Doppler transthoracic echocardiogram is performed. Summary 1. Complete two-dimensional, color flow and Doppler transthoracic echocardiogram is performed. 2. Normal left ventricular size and systolic contractility with grade 1 diastolic noncompliance. 3. Mildly sclerotic but not stenotic aortic valve. Left Ventricle Left ventricular chamber dimension is normal. Left ventricular systolic function is normal, estimated at 65-70%. The left ventricular diastolic function is grade I diastolic dysfunction. Right Ventricle Right ventricular chamber dimension is normal. Left Atria Left atrial chamber dimension is normal. Right Atria Right atrial chamber dimension is normal. Aortic Valve The aortic valve is trileaflet. There is mild aortic valve sclerosis. Pulmonic Valve The pulmonic valve is not well visualized. Mitral Valve The mitral valve has normal leaflets. Tricuspid Valve The tricuspid valve leaflets are normal. There is trace tricuspid valve regurgitation. Pericardium/Pleural The pericardium appears normal. Aorta The aortic root size at the sinus of Valsalva is normal. Left Ventricular Outflow Tract Name Value Normal LVOT 2D LVOT Diameter 2.0 cm LVOT Doppler LVOT Peak Gradient 3 mmHg LVOT Mean Gradient 2 mmHg LVOT VTI 16 cm LVOT VTI/AV VTI Ratio 0.7 LVOT Stroke Volume 51 ml LVOT CO 4.3 l/min LVOT CI 2.7 l/min/m2 Pulmonic Valve Name Value Normal RVOT Doppler RVOT Peak Gradient 2 mmHg PV Doppler PV Peak Gradient 4 mmHg Mitral Valve Name Value Normal MV Doppler MV Decel Boundary 382 cm/s2 MV PHT 50 ms MV Area (PHT) 4.4 cm2 4.0-5.0 MV Diastolic Function
[2023-02-10 04:34] LABS: Appearance Urine Clear (Clear); Bacteria Urine None Seen /hpf; Bilirubin Urine Negative (Negative); Blood Urine Negative (Negative); Color Urine Yellow (Yellow); Glucose Urine UA Negative (Negative); Ketones Urine Negative (Negative); Leukocyte Esterase Ur Trace LEU/UL (Negative); Nitrate Urine Negative (Negative); Non Pathogenic Casts 0-2; Protein Urine Negative (Negative); RBC Urine 0-2 /hpf (0-2); Specific Grav Ur 1.008 (1.001-1.035); Squamous Epithelial Cell Urine None seen /hpf (Few); WBC Urine 0-5 /hpf; pH Urine 7.5 (5.0-9.0)
[2023-02-10] MEDS: ACETAMINOPHEN 325 MG TABLET 650 MG PO ×2 (04:35→19:59)
[2023-02-10 04:39] LABS: Basophils Percent Auto 0.7 % (0.2-1.2); Eosinophils Absolute Auto 0.7 K/mm3 (0-0.3); Hematocrit 35.8 % (37.0-47.0); Hemoglobin 11.8 g/dL (12.0-15.0); Immature Granulocyte Absolute 0.02 K/mm3 (0.00-0.031); Immature Granulocyte Percent A 0.3 % (0-0.5); Lymphocytes Absolute Auto 1.43 K/mm3 (0.9-3.2); Lymphocytes Percent Auto 24.2 % (18.3-44.2); Mean Corpuscular Hemoglobin 31.5 pg (26-34); Mean Corpuscular Volume 95.5 fl (80-100); Monocytes Absolute Auto 0.7 K/mm3 (0.1-0.6); Monocytes Percent Auto 11.7 % (2.6-8.5); Neutrophils Absolute Auto 3.1 K/mm3 (1.3-6.7); Neutrophils Percent Auto 52.1 % (45.5-73.1); Platelet Count Result 179 k/mm3 (150-375); Red Blood Count 3.75 M/mm3 (4.2-5.4); Red Cell Distribution Width 13.4 % (11.5-14.5); White Blood Count 5.9 K/mm3 (4.5-10.0)
[2023-02-10 04:49] LABS: Lactic Acid Reflex 0.7 mmol/L (0.7-2.0)
[2023-02-10 04:50] LABS: Alanine Aminotransferase 71 U/L (6-35); Albumin Level 3.4 g/dL (3.5-5.1); Alkaline Phosphatase 66 U/L (38-126); Anion Gap 7 mmol/L (8-16); Aspartate Amino Transferase 100 U/L (14-36); Bilirubin,Total 0.7 mg/dL (0.2-1.3); Blood Urea Nitrogen 15 mg/dL (7-17); Calcium 8.2 mg/dL (8.4-10.2); Carbon Dioxide 22 mmol/L (22-30); Chloride 106 mmol/L (98-107); Estimated CRCL calculation 33 ml/min; Estimated Glomerular Filt Rate 48; Glucose 77 mg/dL (65-110); Magnesium 2.1 mg/dL (1.6-2.3); Potassium 3.6 mmol/L (3.4-5.0); Sodium 135 mmol/L (137-145)
[2023-02-10 04:50] LABS: Add Urine Microscopic? YES
[2023-02-10] MEDS: LEVOTHYROXINE SODIUM 88 MCG TABLET PO (05:49)
[2023-02-10 07:00] LABS: Free T4 Free Thyroxine Reflex 1.79 ng/dL (0.78-2.19)
[2023-02-10] MEDS: METOPROLOL SUCCINATE EXT REL 50 MG TABCR PO (09:09)
[2023-02-10] MEDS: predniSONE 1 MG TABLET 7 MG PO (09:10)
[2023-02-10] MEDS: CLOPIDOGREL BISULFATE 75 MG TABLET PO (09:10)
[2023-02-10] MEDS: amLODIPine BESYLATE 5 MG TABLET 10 MG PO (09:10)
[2023-02-10] MEDS: LEFLUNOMIDE 10 MG TABLET PO (09:10)
[2023-02-10] MEDS: ASPIRIN 81 MG ENTERIC TABLET PO (09:10)
[2023-02-10] MEDS: lisinopriL 10 MG TABLET PO (09:10)
[2023-02-10] MEDS: SILVER SULFADIAZINE 1% CR 50 GM JAR (*BKC) 1 APPLIC TOPICAL ×2 (09:11→20:13)
--- NOTE | 2023-02-10 10:01 | PM.IMPN ---
Progress Note: A&P Assessment and Plan (1) Elevated troponin: Code(s): R77.8 - Other specified abnormalities of plasma proteins Status: Acute Assessment and Plan: elevated troponins, consult cardiology trend troponin, monitor telemetry echo report pending (2) Syncope: Qualifiers: Syncope type: unspecified Qualified Code(s): R55 - Syncope and collapse Code(s): R55 - Syncope and collapse Status: Acute Assessment and Plan: as above (3) Rheumatoid arthritis: Code(s): M06.9 - Rheumatoid arthritis, unspecified Status: Acute Assessment and Plan: Continue with daily prednisone Continue Arava (4) Macular degeneration: Code(s): H35.30 - Unspecified macular degeneration Status: Acute Assessment and Plan: Continue with home eye drops (5) Hypothyroidism: Code(s): E03.9 - Hypothyroidism, unspecified Status: Acute Assessment and Plan: Continue with levothyroxine check tsh (6) Hypertension: Code(s): I10 - Essential (primary) hypertension Status: Acute Assessment and Plan: Continue with hydralazine, amlodipine, lisinopril and metoprolol blood pressures reviewed 02/10 (7) Other iron deficiency anemias: Code(s): D50.8 - Other iron deficiency anemias Status: Acute Assessment and Plan: H&H is normal (8) Hyperlipidemia, unspecified: Qualifiers: Hyperlipidemia type: unspecified Qualified Code(s): E78.5 - Hyperlipidemia, unspecified Code(s): E78.5 - Hyperlipidemia, unspecified Status: Acute Assessment and Plan: Continue with Lipitor (9) Hip fracture: Code(s): S72.009A - Fracture of unspecified part of neck of unspecified femur, initial encounter for closed fracture Status: Acute Assessment and Plan: inoperable right hip fracture pain control consult ortho, was seen in office last week, told to quit smoking to qualify for possible surgical intervention (10) Carotid artery disease: Code(s): I77.9 - Disorder of arteries and arterioles, unspecified Status: Acute Assessment and Plan: check mri consult neuro recent cva Plan DVT prophylaxis with SCDs GI prophylaxis not indicated Code status full code Subjective Date/time seen: 02/10/23 10:01 Interval history: No overnight events noted. No chest pain or shortness of breath. No nausea, vomiting or diarrhea. No fevers or chills. Review of Systems Review of Systems: 12 point review of systems was assessed and was negative except as noted in the HPI Exam Narrative: General: No acute distress, alert and oriented per baseline HEENT: Atraumatic, normocephalic, mucous membranes moist CV: Regular rate and rhythm, S1, S2 Lungs: Clear to auscultation bilaterally, no rales or crackles noted, no wheezes, good air entry Abdomen: Soft, nontender, nondistended Extremities: significant bruising to left hand, wrist drop noted on left, LE no edema Psych: Euthymic, normal affect Objective Data Vital Signs Vital Signs: Vital Signs - 24 hr 02/09/23 10:02 02/09/23 10:15 02/09/23 10:16 Temperature Pulse Rate 84 86 82 Respiratory Rate 18 20 16 Blood Pressure 118/60 123/72 Pulse Oximetry 95 96 96 Oxygen Delivery 02/09/23 10:45 02/09/23 11:00 02/09/23 11:15 Temperature Pulse Rate 86 87 90 Respiratory Rate 21 H 14 18 Blood Pressure Pulse Oximetry 98 97 97 Oxygen Delivery 02/09/23 13:35 02/09/23 11:53 02/09/23 12:01 Temperature Pulse Rate 90 88 85 Respiratory Rate 20 22 H 18 Blood Pressure 155/80 H 126/65 118/77 Pulse Oximetry 97 96 96 Oxygen Delivery 02/09/23 12:16 02/09/23 12:31 02/09/23 12:46 Temperature Pulse Rate 89 85 95 Respiratory Rate 15 16 19 Blood Pressure 129/66 120/64 122/75 Pulse Oximetry 96 95 96 Oxygen Delivery 02/09/23 13:01
[2023-02-10 11:10] LABS: Total Triiodothyronine (T3) 0.84 NG/ML (0.97-1.69)
[2023-02-10] MEDS: LORazepam INJ (*CRX) 2 MG/ML VIAL 0.5 MG IV PUSH (12:41)
--- NOTE | 2023-02-10 13:10 | PM.CNCAR ---
Assessment and Plan Assessment and plan (1) Syncope: Qualifiers: Syncope type: unspecified Qualified Code(s): R55 - Syncope and collapse Code(s): R55 - Syncope and collapse Status: Acute Assessment and Plan: By her history, sounds like this is most likely vasovagal syncope. She has not had any arrhythmias noted on telemetry while here in the hospital. Cardiogram shows normal LV systolic function with no valve pathology. No further cardiac workup recommended. Cardiology will sign off. Please call with questions. (2) Elevated troponin: Code(s): R77.8 - Other specified abnormalities of plasma proteins Status: Acute Assessment and Plan: Her troponin levels are mildly elevated and flat. This is not consistent with ACS/acute plaque rupture. She is not having any chest pain. Her EKG shows sinus rhythm with no ischemic ST T-wave abnormalities. (3) CVA (cerebral vascular accident): Code(s): I63.9 - Cerebral infarction, unspecified Status: Acute Assessment and Plan: Recent MCA stroke treated at [facility]. Etiology unknown. Possibly cardioembolic. Continue to monitor on telemetry for any atrial fibrillation. Would recommend 30 day color television console monitor on discharge for ongoing assessment for any atrial fibrillation. History of Present Illness History of Present Illness Consult date/time: 02/10/23 13:10 Requesting physician: Yakelin Carreno DO Consult reason: Other (elevated troponins, syncope ) Reason For Visit: syncopal episode,recent cva,elevated troponin,ze Narrative: Ms. Blair is a 77 year old female with recent history of CVA treated at [facility]. She comes to the hospital following a syncopal event at her rehab facility. She was having a bowel movement and began to experience dizziness and subsequently lost consciousness. She had some nausea when she regained consciousness and vomited and apparently lost consciousness briefly again. After this event, EMS was activated and she was brought to the emergency department. She denies any history of syncope, presyncope, chest pain, palpitations. She does not have any known cardiac history including coronary artery disease, congestive heart failure, or any arrhythmias. According to her , she was not noted to have any arrhythmias when she was recently hospitalized at [facility] for a CVA. Currently, she is sitting comfortably in her room after having an MRI done. She is somewhat lethargic as she received some Ativan prior to this test being done. She currently has no complaints. Review of Systems Review of Systems: All systems reviewed & are unremarkable except as noted in HPI and below PMFSH Past Medical History Medical History (Updated 02/10/23 @ 15:40 by DANGELO Collins) Arthritis of right hip Chronic kidney disease Degenerative joint disease (DJD) of hip Dental infection Elevated troponin Family history of abdominal aortic aneurysm (AAA) Family history of alpha 1 antitrypsin deficiency Giant cell aortic arteritis Glaucoma Macular degeneration Nicotine dependence Osteoporosis Rheumatoid arthritis Squamous cell carcinoma Temporal arteritis TIA (transient ischemic attack) Surgical History Surgical History History of foot surgery History of oral surgery History of temporal artery biopsy Family History Family History Grandparent Family history of glaucoma Family history of aortic aneurysm Hypertension Cerebrovascular accident Diabetes mellitus Mother Family history of glaucoma, Onset Age: 93 Hypertension, Onset Age: 93 Family history of osteoporosis Father Family history of aortic aneurysm, Onset Age: 78 Hypertension, Onset Age: 78 Cerebrovascular accident Sibling GERD (gastroesophageal reflux disease) COPD (chronic obstructive pulmonary disease)
--- NOTE | 2023-02-10 15:05 | PCPTNOTE ---
Waiting on ortho consult/recommendations prior to PT evaluation - RN aware.
[2023-02-10] MEDS: ATORVASTATIN 40 MG TABLET PO (20:13)
--- NOTE | 2023-02-10 20:36 | PC.NURSE ---
02/10/[address] Morse regarding results of hip x-ray. He states the osteoarthritis and avascular necrosis is old issue. Patient has been informed of possible hip replacement but health is not acceptable for surgery. Please cancel consult as this patient is seen on outpatient basis. Continue with Physical and Occupational therapy as tolerated.
[2023-02-11] VITALS (12 sets, daily range): BP systolic 115–134; BP diastolic 64–75; PULSE 66–100; RESP 16–20; TEMP 36.4–36.9; O2SAT 95–97
[2023-02-11 04:59] LABS: Basophils Percent Auto 0.7 % (0.2-1.2); Eosinophils Absolute Auto 0.5 K/mm3 (0-0.3); Eosinophils Percent Auto 7.9 % (0-4.4); Hematocrit 35.4 % (37.0-47.0); Hemoglobin 11.4 g/dL (12.0-15.0); Immature Granulocyte Absolute 0.02 K/mm3 (0.00-0.031); Immature Granulocyte Percent A 0.4 % (0-0.5); Lymphocytes Absolute Auto 1.22 K/mm3 (0.9-3.2); Lymphocytes Percent Auto 21.5 % (18.3-44.2); Mean Corpuscular HGB Conc 32.2 g/dl (32-36); Mean Corpuscular Hemoglobin 30.7 pg (26-34); Mean Corpuscular Volume 95.4 fl (80-100); Mean Platelet Volume 10.9 fl (7.4-10.4); Monocytes Absolute Auto 0.6 K/mm3 (0.1-0.6); Monocytes Percent Auto 10.6 % (2.6-8.5); Neutrophils Absolute Auto 3.4 K/mm3 (1.3-6.7); Neutrophils Percent Auto 58.9 % (45.5-73.1); Platelet Count Result 178 k/mm3 (150-375); Red Blood Count 3.71 M/mm3 (4.2-5.4); Red Cell Distribution Width 13.2 % (11.5-14.5); White Blood Count 5.7 K/mm3 (4.5-10.0)
[2023-02-11 05:28] LABS: Alanine Aminotransferase 69 U/L (6-35); Albumin Level 3.3 g/dL (3.5-5.1); Alkaline Phosphatase 54 U/L (38-126); Anion Gap 4 mmol/L (8-16); Aspartate Amino Transferase 83 U/L (14-36); Bilirubin,Total 0.8 mg/dL (0.2-1.3); Blood Urea Nitrogen 15 mg/dL (7-17); Calcium 8.5 mg/dL (8.4-10.2); Carbon Dioxide 22 mmol/L (22-30); Chloride 106 mmol/L (98-107); Estimated CRCL calculation 33 ml/min; Estimated Glomerular Filt Rate 48; Glucose 91 mg/dL (65-110); Potassium 3.6 mmol/L (3.4-5.0); Sodium 132 mmol/L (137-145)
--- NOTE | 2023-02-11 09:10 | PCPTNOTE ---
Attempted to see patient, patient with HUMPHREY.
[2023-02-11] MEDS: SILVER SULFADIAZINE 1% CR 50 GM JAR (*BKC) 1 APPLIC TOPICAL (10:27)
[2023-02-11] MEDS: ACETAMINOPHEN 325 MG TABLET 650 MG PO (10:30)
[2023-02-11] MEDS: predniSONE 1 MG TABLET 7 MG PO (10:31)
[2023-02-11] MEDS: LEFLUNOMIDE 10 MG TABLET PO (10:32)
[2023-02-11] MEDS: lisinopriL 10 MG TABLET PO (10:33)
[2023-02-11] MEDS: ASPIRIN 81 MG ENTERIC TABLET PO (10:34)
[2023-02-11] MEDS: amLODIPine BESYLATE 5 MG TABLET 10 MG PO (10:34)
[2023-02-11] MEDS: CLOPIDOGREL BISULFATE 75 MG TABLET PO (10:34)
[2023-02-11] MEDS: LEVOTHYROXINE SODIUM 100 MCG TABLET PO (10:35)
[2023-02-11] MEDS: METOPROLOL SUCCINATE EXT REL 50 MG TABCR PO (10:36)
--- NOTE | 2023-02-11 10:58 | PM.DS ---
DS: Admitting Diagnosis Discharge Date 02/11/23 Admitting Diagnosis syncopal episode DS: Discharge Diagnosis Discharge Diagnosis (1) Elevated troponin: Code(s): R77.8 - Other specified abnormalities of plasma proteins Status: Acute Assessment and Plan: elevated troponins, consult cardiology trend troponin, monitor telemetry echo report pending (2) Syncope: Qualifiers: Syncope type: unspecified Qualified Code(s): R55 - Syncope and collapse Code(s): R55 - Syncope and collapse Status: Acute Assessment and Plan: as above (3) Rheumatoid arthritis: Code(s): M06.9 - Rheumatoid arthritis, unspecified Status: Acute Assessment and Plan: Continue with daily prednisone Continue Arava (4) Macular degeneration: Code(s): H35.30 - Unspecified macular degeneration Status: Acute Assessment and Plan: Continue with home eye drops (5) Hypothyroidism: Code(s): E03.9 - Hypothyroidism, unspecified Status: Acute Assessment and Plan: Continue with levothyroxine check tsh (6) Hypertension: Code(s): I10 - Essential (primary) hypertension Status: Acute Assessment and Plan: Continue with hydralazine, amlodipine, lisinopril and metoprolol blood pressures reviewed 02/10 (7) Other iron deficiency anemias: Code(s): D50.8 - Other iron deficiency anemias Status: Acute Assessment and Plan: H&H is normal (8) Hyperlipidemia, unspecified: Qualifiers: Hyperlipidemia type: unspecified Qualified Code(s): E78.5 - Hyperlipidemia, unspecified Code(s): E78.5 - Hyperlipidemia, unspecified Status: Acute Assessment and Plan: Continue with Lipitor (9) Hip fracture: Code(s): S72.009A - Fracture of unspecified part of neck of unspecified femur, initial encounter for closed fracture Status: Acute Assessment and Plan: inoperable right hip fracture pain control consult ortho, was seen in office last week, told to quit smoking to qualify for possible surgical intervention (10) Carotid artery disease: Code(s): I77.9 - Disorder of arteries and arterioles, unspecified Status: Acute Assessment and Plan: check mri consult neuro recent cva Plan DVT prophylaxis with SCDs GI prophylaxis not indicated Code status full code DS: Summary Hospital Course Hospital Course: 77-year-old female with history of inoperable chronic right hip fracture as well as recent CVAs presenting from inpatient rehab due to a syncopal episode that happened while she was on the toilet. Cardiology was consulted and suspected this was vasovagal but did recommend a 30 day event monitor at discharge. Orthopedic surgery was consulted and recommended follow-up outpatient. All symptoms resolved and were thought to be secondary to vasovagal etiology. Telemetry remained stable while here. Echo was performed which was essentially within normal limits and grade 1 diastolic dysfunction noted. MRI was performed and neurology was consulted. MRI showed acute infarcts in the right temporal/parietal/occipital region as well as old infarcts in the left cerebellum. No recent imaging available for comparison, however, these do appear new from the CTA head and neck done February 06. Patient was continued on aspirin, Plavix and Lipitor and discharged back to inpatient rehab in stable condition close outpatient follow-up by Neurology and the event monitor. Time Spent with Patient Time attestation: Total time spent providing and/or coordinating discharge services: Exam Narrative: General: No acute distress, alert and oriented per baseline HEENT: Atraumatic, normocephalic, mucous membranes moist CV: Regular rate and rhythm, S1, S2 Lungs: Clear to auscultation bilaterally, no rales or crackles noted, no wheezes, good air entry Abdomen: Soft,
--- NOTE | 2023-02-11 12:35 | PCPTNOTE ---
On 02/11/23, the student, [Suzanna Rich], provided care and completed [facility] documentation on this patient. I have reviewed the student's documentation and agree with the findings.
--- NOTE | 2023-02-11 15:03 | WPDNEURCNPN ---
Assessment and Plan Assessment and plan (1) CVA (cerebral vascular accident): Qualifiers: CVA mechanism: embolism Precerebral and cerebral artery: middle cerebral artery Laterality of affected vessel: right Qualified Code(s): I63.411 - Cerebral infarction due to embolism of right middle cerebral artery Code(s): I63.9 - Cerebral infarction, unspecified Status: Acute (2) Essential (primary) hypertension: Code(s): I10 - Essential (primary) hypertension Status: Acute Plan 1 vasovagal syncope 2 cardiologists have recommended 30 day monitoring to rule out the possibility of atrial fibrillation or cardiac dysrhythmia 3 right hemispheric stroke with left hemiparesis with obvious left wrist drop 4. Continue the aspirin and Plavix and the reason for combination treatment explain to the patient as well as the also told her to continue Plavix for at least 6 weeks and subsequently aspirin as such once the monitoring for 30 days done by the Cardiology team than the further decision will be made according she will be involved in the continual rehab. Consult date: 02/11/23 HPI: Alexa Blair is a 77 year old female Admitted to the hospital through the emergency room on February 09, 2023 patient was brought to the emergency room via EMS with report of syncopal episodes patient had been diagnosed to have a stroke on last Monday when she was seen in the emergency room here at [facility] and subsequently transferred to [facility] where she was started on Plavix since the day before admission to the ER this time patient has been residing at [facility] where she experienced vomiting after breakfast in the morning and felt like she needed to have a bowel movements she was able to possible very small amount of stool but then had a syncopal episode which was witnessed by her all of a sudden she became limp and passed out she did not become unconscious for very long then began vomiting after the syncopal episode and at that time EMS were called to the scene with this episode patient had no complaints of any weakness or numbness except that she was noted to have left wrist drop and chronic pain in her right hip from currently in operable right hip fracture she gave no history of visual difficulties. Her medications at that time include aspirin 81 mg daily prednisone 7 mg daily left pleura my 10 mg daily. On initial exam in the emergency room she was documented to have multiple allergies particularly lidocaine tramadol and Aspercreme but her initial examination was with the left-sided deficit. 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 She does have a strong family history of aortic aneurysm and glaucoma is currently everyday smoker but no substance user and examination in the emergency room documented her to be intermittently confused falling asleep during the interview. Her vital signs were normal EKG revealed no evidence of atrial fibrillation CT scan revealed no bleed troponin was undetected he was admitted to the hospital for further evaluation. CBC was normal BMP was sodium 134 CT of the head negative EKG without atrial fibrillation Since admission here she had the MRI of the brain which documented acute infarct in the right temporoparietal occipital region and small old infarct in left cerebellum with nonspecific white matter change. carotid Doppler study with less than 50% stenosis bilaterally. She has had the CTA on 02/06 which had documented the old infarct in left cerebellum as well in addition to no aneurysm or intracranial arterial sten. Present she is receiving aspirin 81 mg daily, atorvastatin 40 mg 2 of them at night clopidogrel 75 mg daily, in addition to hydralazine 50 mg 3 times a day p.r.n. lisinopril 10 mg daily
== END 2023-02-11 18:00 | DRG 65 ==
LOC: ANHED 12:55 → ANHIMU 13:19
PROVIDERS: General Practice; Nurse Practitioner; Admitting Provider Student in an Organized Health Care Education/Training Program; Emergency Provider Physician Assistant; PCP Family Medicine; Visit Provider Student in an Organized Health Care Education/Training Program
DX: I63.411 Cerebral infarction due to embolism of right middle cerebral artery (principal); G81.94 Hemiplegia, unspecified affecting left nondominant side; M84.459A Pathological fracture, hip, unspecified, initial encounter for fracture; I12.9 Hypertensive chronic kidney disease with stage 1 through stage 4 chronic kidney disease, or unspecified chronic kidney disease; R55 Syncope and collapse; R77.8 Other specified abnormalities of plasma proteins; D50.9 Iron deficiency anemia, unspecified; E03.9 Hypothyroidism, unspecified; E78.5 Hyperlipidemia, unspecified; F17.210 Nicotine dependence, cigarettes, uncomplicated; H35.30 Unspecified macular degeneration; H40.9 Unspecified glaucoma; I25.10 Atherosclerotic heart disease of native coronary artery without angina pectoris; M06.9 Rheumatoid arthritis, unspecified; M16.11 Unilateral primary osteoarthritis, right hip; M21.332 Wrist drop, left wrist; M81.0 Age-related osteoporosis without current pathological fracture; M31.6 Other giant cell arteritis; N18.9 Chronic kidney disease, unspecified; Z85.828 Personal history of other malignant neoplasm of skin; Z79.82 Long term (current) use of aspirin; Z79.02 Long term (current) use of antithrombotics/antiplatelets
CPT/HCPCS: 36415; 70450; 70551; 73502; 80053; 81001; 82728; 83605; 83735; 84439; 84443; 84480; 84484; 85025; 93005; 93306; 93880; 96360; 96361; 96374; 97161; 97165; 97535; 99285; A9270; G0378; J2060; J7030

== ENCOUNTER 2023-08-02 08:05 | Outpatient (CLI) | payer MEDICARE, SELFPAY ==
[2023-08-22 17:12] VITALS: BMI 16.2
--- NOTE | 2023-08-22 17:12 | WPDSLEEPSTUD ---
Sleep Study Date of Study: 08/02/23 Ordering Provider: MARIZA Limon Interpreting Physician: Mandy Bullard DO Sleep Study Type: Split Polysomnogram Height: 1.63 m Weight: 43.091 kg Body Mass Index: 16.2 Neck Circumference (inches): 12.75 [place]: 12 Reason for Sleep Study Snoring, daytime hypersomnia Sleep History The patient is a 78-year-old female that had a sleep study ordered by her primary care for evaluation of sleep apnea. The patient denies awakening from sleep short of breath. She denies awakening at night with heartburn, belching or cough. She occasionally snores but it is never loud enough that others complain. She denies having trouble sleeping when she has a cold. She denies waking up gasping for air throughout the night. She rarely has breathing problems at night observed by herself or others. She denies sweating excessively at night. She denies having heart palpitations or irregular heartbeats during the night. She frequently falls asleep during the day but never while driving. She denies sleep paralysis, cataplexy and hypnagogic / hypnopompic hallucinations. She denies having trouble at school or work due to sleepiness. She denies feeling afraid of going to sleep. She occasionally has nightmares. She rarely remembers her dreams. She rarely has thoughts racing through her mind. She rarely feels sad, depressed or anxious. She frequently has muscular tension. She rarely notices parts of her body jerk. She denies kicking during the night. She denies having crawling and aching feelings in her legs but occasionally has leg pain during the night. She occasionally grinds her teeth during sleep but rarely awakens with morning jaw pain. She is frequently bothered by pain during the day and frequently awakened by pain during the night. He rarely wakes up feeling stiff in the morning. She occasionally wakes up with sore or achy muscles. She denies waking up with pain in the neck, spine and other joints. She goes to bed at 10:00 p.m. on both weekdays and weekends. She is able to fall asleep immediately. She wakes up 3-4 times throughout the night. She wakes up at 10:00 a.m. on both weekdays and weekends. She typically gets 10-11 hours of sleep per night. She will stay in bed after waking up in the morning. She currently lives with her . She will consume caffeinated beverages within 2 hours of bedtime. She denies engaging in physical exercise before bedtime. She will watch television before falling asleep. She will take naps in the afternoon or the evening but they are not refreshing. She consumes 2 caffeinated beverages per day. She smokes 3 cigarettes per day. She denies alcohol and recreational drug use. [facility] Past Medical History Medical History Arthritis of right hip AVN (avascular necrosis of bone) Chronic kidney disease Degenerative joint disease (DJD) of hip Dental infection Elevated troponin Family history of abdominal aortic aneurysm (AAA) Family history of alpha 1 antitrypsin deficiency Giant cell aortic arteritis Glaucoma Macular degeneration Nicotine dependence Osteoporosis Rheumatoid arthritis Squamous cell carcinoma Temporal arteritis TIA (transient ischemic attack) Surgical History Surgical History History of foot surgery History of oral surgery History of temporal artery biopsy Family History Family History Grandparent Family history of glaucoma Family history of aortic aneurysm Hypertension Cerebrovascular accident Diabetes mellitus Mother Family history of glaucoma, Onset Age: 93 Hypertension, Onset Age: 93 Family history of osteoporosis Father Family history of aortic aneurysm, Onset Age: 78 Hypertension, Onset Age: 78 Cerebrovascular acci
== END 2023-08-03 07:07 | disposition home or self-care (01) ==
LOC: ANHCSM 08:06
PROVIDERS: PCP Family Medicine; Visit Provider Nurse Practitioner Family
DX: G47.33 Obstructive sleep apnea (adult) (pediatric) (principal); G47.31 Primary central sleep apnea; R53.83 Other fatigue
CPT/HCPCS: 95811

== ENCOUNTER 2023-08-04 13:24 | Outpatient (CLI) | payer MEDICARE, SELFPAY ==
--- NOTE | ~2023-08-04 | MM_ITS ---
EXAMINATION: MM screening lyubov BI w radha HISTORY: Screening mammogram TECHNIQUE: Craniocaudal and mediolateral oblique 3-D tomosynthesis images were obtained and synthetic 2-D images were generated. CAD analysis was submitted and interpreted. COMPARISON: 08/01/2022, 07/11/2022, 06/16/2021, 05/25/2020 BREAST PARENCHYMAL COMPOSITION: There are scattered areas of fibroglandular density. FINDINGS: Scattered benign-appearing calcifications are present. No suspicious mass, calcification, o r architectural distortion are identified in either breast to suggest malignancy. There has been no s uspicious interval change. IMPRESSION: 1. No mammographic evidence of malignancy. 2. Recommend routine screening mammography in one year. BI-RADS Category 2: Benign finding(s). Reviewed, dictated and finalized at location A. [employer]PER[employer]OR
== END 2023-08-04 13:25 | disposition home or self-care (01) ==
LOC: CHSIMG 13:27
PROVIDERS: PCP Family Medicine; Visit Provider Nurse Practitioner Family
DX: Z12.31 Encounter for screening mammogram for malignant neoplasm of breast (principal)
CPT/HCPCS: 77063; 77067

== ENCOUNTER 2023-09-04 09:35 | Outpatient (CLI) | payer MEDICARE, SELFPAY ==
--- NOTE | ~2023-09-04 | DEXA_ITS ---
Bone Density Report Name: MAXINE AGOSTO Age: 78 Sex: Female Ethnicity: White Date of : 1945 Indication: hyperparathyroidism; prior fracture; end stage renal disease; rheumatoid arthritis; postmenopausal Referring Provider: RUBÉN VEGA Study: Bone densitometry was performed. Exam Date: September 04, 2023 Accession number: [id number] Bone Density: Region BMD T-score Z-score Classification AP Spine(L2, L4) 1.069 -0.1 2.6 Normal Femoral Neck (Left) 0.626 -2.0 0.2 Osteopenia Total Hip (Left) 0.674 -2.2 -0.2 Osteopenia World Health Organization criteria for BMD impression classify patients as: Normal (T-score at or above -1.0), Osteopenia (T-score between -1.0 and -2.5), or Osteoporosis (T-score at or below -2.5). 10-year Fracture Risk: FRAX not reported because: Prior hip or vertebral fracture Treated for osteoporosis Clinical Information Provided by Patient: Have had a previous hip or vertebral fracture Has had a low trauma fracture Smokes Has rheumatoid arthritis Is being treated for osteoporosis Has used the following medications: Vitamin D, Calcium Has the following medical conditions: End stage renal disease, Hyperparathyroidism Patient maximum height was 63 Menopause Age: 50 No regular weight bearing exercise Does not regularly consume dairy products Drinks caffeinated beverages Onset of menses at age 12 Number of children 0 Impression: The patient has low bone mass, based on the Left Total Hip T-score. The patient has risk factors, including: smoking, previous fracture. Discussion: It is important to ask patients whether they are taking their medications and to encourage continued and appropriate compliance with their osteoporosis therapies to reduce fracture risk. It is also important to review their risk factors and encourage appropriate calcium and vitamin D intakes, exercise, fall prevention and other lifestyle measures. Follow-Up: Consider a repeat BMD and Vertebral Fracture Assessment (VFA) exam in 2 years or sooner if medically necessary, to reassess this patient's status. Reported by: [facility] on 09/04/2023 9:59:00 AM. Reviewed, dictated and finalized at location AMiguelina ACEVEDO
== END 2023-09-04 09:36 | disposition home or self-care (01) ==
LOC: ANHIMG 09:40
PROVIDERS: PCP Family Medicine; Visit Provider Family Medicine
DX: M85.88 Other specified disorders of bone density and structure, other site (principal); Z78.0 Asymptomatic menopausal state
CPT/HCPCS: 77080

== ENCOUNTER 2023-09-13 14:20 | Outpatient (CLI) | payer MEDICARE, SELFPAY ==
[2023-09-13 18:53] LABS: Basophils Percent Auto 0.5 % (0.2-1.2); Eosinophils Absolute Auto 0.2 K/mm3 (0-0.3); Eosinophils Percent Auto 3.1 % (0-4.4); Hematocrit 26.5 % (37.0-47.0); Hemoglobin 8.1 g/dL (12.0-15.0); Immature Granulocyte Absolute 0.01 K/mm3 (0.00-0.031); Immature Granulocyte Percent A 0.2 % (0-0.5); Immature Reticulocyte Fraction 8.1 % (3.0-15.9); Lymphocytes Absolute Auto 0.57 K/mm3 (0.9-3.2); Lymphocytes Percent Auto 10.3 % (18.3-44.2); Mean Corpuscular HGB Conc 30.6 g/dl (32-36); Mean Corpuscular Hemoglobin 30.9 pg (26-34); Mean Corpuscular Volume 101.1 fl (80-100); Mean Platelet Volume 12.7 fl (7.4-10.4); Monocytes Absolute Auto 0.5 K/mm3 (0.1-0.6); Monocytes Percent Auto 8.3 % (2.6-8.5); Neutrophils Absolute Auto 4.3 K/mm3 (1.3-6.7); Neutrophils Percent Auto 77.6 % (45.5-73.1); Platelet Count Result 137 k/mm3 (150-375); Red Blood Count 2.62 M/mm3 (4.2-5.4); Red Cell Distribution Width 14.8 % (11.5-14.5); Reticulocyte Hemoglobin Conten 32.5 pg (28.2-35.7); Reticulocyte Percent 1.27 % (0.7-4.3); Reticulocytes Absolute 0.03 M/mm3 (0.02-0.1); White Blood Count 5.5 K/mm3 (4.5-10.0)
[2023-09-13 19:02] LABS: Iron 71 ug/dL (37-170)
[2023-09-13 19:11] LABS: Percent Iron Saturation 30 % (20-50)
[2023-09-15 13:13] LABS: Erythropoietin (EPO) 15.8 mIU/mL (2.6-18.5)
== END 2023-09-13 14:21 | disposition home or self-care (01) ==
LOC: ANHGOSHLAB 14:22
PROVIDERS: PCP Family Medicine; Visit Provider Family Medicine
DX: D64.9 Anemia, unspecified (principal); N18.9 Chronic kidney disease, unspecified
CPT/HCPCS: 36415; 82668; 83540; 83550; 85025; 85046

== ENCOUNTER 2023-09-20 13:57 | Outpatient (NON) | payer MEDICARE, SELFPAY ==
[2023-09-20 20:26] LABS: IFOB Positive Control Positive; Immunochemical Fecal Occult Bl Negative (N)
== END 2023-09-20 13:58 | disposition home or self-care (01) ==
LOC: ANHGOSHLAB 13:58
PROVIDERS: PCP Family Medicine; Visit Provider Family Medicine
DX: D64.9 Anemia, unspecified (principal)
CPT/HCPCS: 82274

== ENCOUNTER 2023-09-25 15:54 | Outpatient (CLI) | payer MEDICARE, SELFPAY ==
[2023-09-25 16:16] LABS: Basophils Percent Auto 0.5 % (0.2-1.2); Eosinophils Absolute Auto 0.4 K/mm3 (0-0.3); Eosinophils Percent Auto 6.3 % (0-4.4); Hematocrit 25.1 % (37.0-47.0); Hemoglobin 7.9 g/dL (12.0-15.0); Immature Granulocyte Absolute 0.02 K/mm3 (0.00-0.031); Immature Granulocyte Percent A 0.3 % (0-0.5); Lymphocytes Percent Auto 9.6 % (18.3-44.2); Mean Corpuscular HGB Conc 31.5 g/dl (32-36); Mean Corpuscular Hemoglobin 31.1 pg (26-34); Mean Corpuscular Volume 98.8 fl (80-100); Mean Platelet Volume 11.4 fl (7.4-10.4); Monocytes Absolute Auto 0.7 K/mm3 (0.1-0.6); Monocytes Percent Auto 10.4 % (2.6-8.5); Neutrophils Absolute Auto 4.5 K/mm3 (1.3-6.7); Neutrophils Percent Auto 72.9 % (45.5-73.1); Platelet Count Result 147 k/mm3 (150-375); Red Blood Count 2.54 M/mm3 (4.2-5.4); Red Cell Distribution Width 14.4 % (11.5-14.5); White Blood Count 6.2 K/mm3 (4.5-10.0)
[2023-09-25 16:47] LABS: Iron 22 ug/dL (37-170)
[2023-09-25 16:53] LABS: Alanine Aminotransferase 37 U/L (6-35); Albumin Level 3.4 g/dL (3.5-5.1); Alkaline Phosphatase 66 U/L (38-126); Anion Gap 5 mmol/L (8-16); Aspartate Amino Transferase 68 U/L (14-36); Bilirubin,Total 0.8 mg/dL (0.2-1.3); Blood Urea Nitrogen 22 mg/dL (7-17); Calcium 9.5 mg/dL (8.4-10.2); Carbon Dioxide 23 mmol/L (22-30); Chloride 108 mmol/L (98-107); Estimated Glomerular Filt Rate 40; Glucose 100 mg/dL (65-110); Lactate Dehydrogenase 253 U/L (120-246); Sodium 136 mmol/L (137-145)
[2023-09-25 17:00] LABS: Percent Iron Saturation 10 % (20-50)
[2023-09-25 18:18] LABS: Folic Acid > 20.0 ng/mL (2.76->20)
[2023-09-28 07:51] LABS: Methylmalonic Acid 368 nmol/L (87-318)
[2023-09-30 15:47] LABS: Soluble Transferrin Receptor 1.92 mg/L (0.76-1.76)
== END 2023-09-25 15:55 | disposition home or self-care (01) ==
PROVIDERS: Nurse Practitioner Family; PCP Family Medicine; Visit Provider Internal Medicine Hematology & Oncology
DX: D64.9 Anemia, unspecified (principal)
CPT/HCPCS: 36415; 80053; 82607; 82728; 82746; 83540; 83550; 83615; 83921; 84238; 85025

== ENCOUNTER 2023-11-14 12:44 | Outpatient (CLI) | payer MEDICARE, OTHER, SELFPAY ==
--- NOTE | ~2023-11-14 | MR_ITS ---
MRI of the brain Clinical History: Cerebral infarction Technique: Axial and sagittal T1-weighted images were acquired. These were followed by axial T2-weigh sagrario, diffusion weighted, gradient, and FLAIR images. COMPARISON: 02/10/2023 Findings: There is no acute infarct, intracranial hemorrhage, or mass lesion. Focal chronic infarcts in the right temporal and parietal lobes are stable from prior exam. Extensive chronic white matter d isease throughout the periventricular white matter bilaterally stable from prior exam. Ventricles and subarachnoid spaces are significantly dilated. Orbits are unremarkable. There is mild bilateral maxillary sinus disease. Remaining paranasal sinuses and mastoid air cells are clear. Major intracranial flow voids are grossly intact. Sagittal midline structures are intact. IMPRESSION: No acute abnormality seen. Severe chronic microvascular ischemic change with focal old infarcts, as above. Moderate to advanced generalized atrophy, unchanged. Reviewed, dictated and finalized at [facility].
== END 2023-11-14 12:45 ==
LOC: MICIMG 12:46
PROVIDERS: PCP Family Medicine; Visit Provider Student in an Organized Health Care Education/Training Program
DX: R68.89 Other general symptoms and signs (principal)
CPT/HCPCS: 70551

== ENCOUNTER 2023-12-31 19:19 | Emergency (ER) | payer MEDICARE, SELFPAY ==
--- NOTE | ~2023-12-31 | CT_ITS ---
EXAMINATION: CT hip RT wo con DATE: 12/31/2023 20:52 INDICATION: Right hip and tailbone pain post fall TECHNIQUE: 1. High resolution computed tomography (CT) of the pelvis was performed without intravenous contrast. Additional sagittal and coronal reconstructions were performed. Automated exposure control and itera tive reconstruction technique were employed. The dose-length product was 198.54 mGy-cm. 2. CT of the right hip was performed without intravenous contrast. Additional sagittal and coronal re constructions were performed. Automated exposure control and iterative reconstruction technique were employed. The dose-length product was 173.23 mGy-cm. COMPARISON: Radiographs dated 02/10/2023 and lumbar spine MR dated 10/09/2022 FINDINGS: Advanced osteoarthritis at the right hip with osteolysis with loss of bone stock at the cephalad aspe ct of the femoral head. This is progressed significantly since the prior radiographs. There is relati ve preservation of the bone stock at the right acetabulum suggesting the changes at the femoral head may be related to chronic osteonecrosis with secondary osteoarthritis. There is calcific debris scatt ered throughout the joint space. Chronic compression fractures at the inferior endplate of L3 and sup erior endplate of L4 unchanged since prior lumbar spine MR. There is mild lower lumbar spondylosis wi th moderate to severe lower lumbar facet osteoarthritis. No acute fracture. Mild osteoarthritis at th e contralateral left hip and at the bilateral sacroiliac joints. 1.3 cm cyst at the visualized lower pole of the left kidney. Both the right kidney and caudal tip of the right hepatic lobe are unremarka ble. Visualized portion of the bowels are normal including the appendix. Bladder is normal. Age-appro priate atrophy of the uterus and bilateral adnexa. No free fluid in the pelvis. No pathologically enl arged pelvic or inguinal lymphadenopathy. IMPRESSION: 1. Advanced right hip osteoarthritis which could be related to chronic osteonecrosis and collapse of the articular surface of the right femoral head. No acute osseous abnormality. 2. Chronic L3 and L4 compression fractures unchanged since 10/09/2022. Reviewed, dictated and finalized at location A. IMPRESSION: 1. Advanced right hip osteoarthritis which could be related to chronic osteonec rosis and collapse of the articular surface of the right femoral head. No acute osseous abnormality. 2. Chronic L3 and L4 compression fractures unchanged since 10/09/2022.
--- NOTE | ~2023-12-31 | CT_ITS ---
EXAMINATION: CT cervical spine wo con DATE: 12/31/2023 20:53 INDICATION: Fall TECHNIQUE: Computed tomography (CT) of the cervical spine was performed without intravenous contrast. Automated exposure control and iterative reconstruction technique were employed. The dose-length pro duct was 144.61 mGy-cm. COMPARISON: None FINDINGS: Mild cervical dextrocurvature. 2 mm anterolisthesis C3 on C4 and C4 on C5. Severe C5-C6 disc height l oss with prominent degenerative endplate changes resulting in mild left anterior vertebral body heigh t loss at C5 and C6. Vertebral body heights are otherwise normal. No acute fracture. There is additio nal moderate disc height loss at C4-C5 and at multiple levels in the visualized upper thoracic spine. Mild disc height loss at the remaining cervical levels. Severe uncovertebral osteoarthritis on the r ight at C5-C6. Mild to moderate uncovertebral osteoarthritis at several remaining cervical levels. Se giovani facet osteoarthritis on the right at C3-C4 and bilaterally at C2-C3 through C4-C5 with mild to m oderate facet osteoarthritis throughout the remainder of the cervical spine. Posterior disc osteophyt e complexes resulting in mild central canal stenosis at C4-C5, C5-C6 and C6-C7. There is also multile viktoria bilateral cervical neural foraminal stenosis, moderate severity on the right at C5-C6, on the lef t at C4-C5 and mild at many of the remaining cervical levels. Mild peripheral irregular septal line t hickening consistent with either usual interstitial pneumonia (UIP) versus nonspecific interstitial p neumonia (NSIP) pattern chronic interstitial lung disease. Atherosclerotic obscuration of the left ca rotid bulb. Cervical soft tissues are otherwise unremarkable. IMPRESSION: 1. Severe cervical spondylosis. No acute osseous abnormality. Reviewed, dictated and finalized at location A.
--- NOTE | ~2023-12-31 | CT_ITS ---
EXAMINATION: CT lumbar spine wo con DATE: 12/31/2023 20:52 INDICATION: Right hip and tailbone pain post fall TECHNIQUE: Computed tomography (CT) of the lumbar spine was performed without intravenous contrast. A utomated exposure control and iterative reconstruction technique were employed. The dose-length produ ct was 264.90 mGy-cm. COMPARISON: Lumbar spine MR dated 10/09/2022 FINDINGS: 4 mm anterolisthesis L4 on L5. No change in a chronic L1 burst fracture with 40% anterior vertebral b nathalie height loss and with up to 2-3 mm retropulsion along the inferior aspect of the posterior wall. U nchanged inferior endplate compression fracture at L3 with 40% central vertebral body height loss. Un changed superior endplate compression fracture with up to 20% posterior vertebral body height loss at L4 with 2 mm retropulsion of the posterior margin of the superior endplate. There are also a few old healed posterior right rib fractures. No acute fractures identified. Mild disc height loss at L4-L5 and L5-S1. There is mild ballooning of the disc spaces adjacent to the previous noted compression and burst fractures. Paravertebral soft tissues are unremarkable. Incidentally noted calcified gallstone s in the visualized portion of the gallbladder. The following disc levels are specifically discussed: T12-L1: Disc is bulging. There is mild bilateral facet joint osteoarthritis. There is no neural meena inal stenosis. There is mild central canal stenosis. L1-L2: The disc does not extend beyond the retropulsed inferior endplate of L1. There is mild bilater al facet joint osteoarthritis. There is mild bilateral neural foraminal stenosis. There is mild centr al canal stenosis. L2-L3: Disc is bulging. There is mild bilateral facet joint osteoarthritis. There is mild bilateral n eural foraminal stenosis. There is mild central canal stenosis. L3-L4: Disc is bulging. There is mild left and moderate right facet joint osteoarthritis. There is mo derate bilateral neural foraminal stenosis. There is moderate central canal stenosis. L4-L5: Disc is bulging. There is severe bilateral facet joint osteoarthritis. There is mild bilateral neural foraminal stenosis. There is mild to moderate central canal stenosis. L5-S1: Disc is bulging. There is severe left and moderate right facet joint osteoarthritis. There is mild left and moderate right neural foraminal stenosis. There is mild central canal stenosis. IMPRESSION: 1. Chronic L1 burst fracture ., chronic L3 and L4 compression fractures and a few chronic posterior r ight rib fractures. No acute osseous abnormality. 2. Mild to moderate lumbar spondylosis. 3. Cholelithiasis. Reviewed, dictated and finalized at location A. IMPRESSION: 1. Chronic L1 burst fracture ., chronic L3 and L4 compression fractures and a f ew chronic posterior right rib fractures. No acute osseous abnormality. 2. Mild to moderate lumbar spondylosis. 3. Cholelithiasis.
--- NOTE | ~2023-12-31 | CT_ITS ---
EXAMINATION: CT brain wo con DATE: 12/31/2023 20:52 INDICATION: Fall. Prior stroke. TECHNIQUE: Computed tomography (CT) of the head was performed without intravenous contrast. Sagittal and coronal reconstructions were performed. The mA was adjusted according to patient size. Iterative reconstruction technique was employed. The dose-length product was 1059.33 mGy-cm. COMPARISON: Brain MR dated 11/14/2023 FINDINGS: No fracture. Region of encephalomalacia consistent with chronic infarct in the posterior right tempor al and right parietal lobes. No acute intracranial hemorrhage, acute infarction or abnormal extra axi al fluid collection. There is extensive scattered white matter hypoattenuation consistent with chroni c small vessel ischemic disease. Symmetric prominence of the sulci and ventricles consistent with mod erate age-appropriate diffuse cerebral volume loss. No mass/mass effect. Mild mucosal thickening in t he right sphenoid sinus. More prominent mucosal thickening with calcification suggestive of chronic f ungal sinusitis at the bilateral maxillary sinuses. The orbits and mastoid air cells are normal. IMPRESSION: 1. No fracture or acute intracranial process. 2. 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 3. Age-related changes including moderate diffuse volume loss and extensive white matter hypoattenuat ion consistent with chronic small vessel ischemic disease. 4. Likely chronic fungal sinusitis at the bilateral maxillary sinuses. Reviewed, dictated and finalized at location A. IMPRESSION: 1. No fracture or acute intracranial process. 2. 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 3. Age-related changes including moderate diffuse volume loss and extensive whi te matter hypoattenuation consistent with chronic small vessel ischemic disease . 4. Likely chronic fungal sinusitis at the bilateral maxillary sinuses.
[2023-12-31 19:23] VITALS: BP 186/101; PULSE 103; RESP 21; TEMP 36.6; O2SAT 97
--- NOTE | 2023-12-31 19:46 | ED.FALL ---
HPI - Fall General Chief Complaint: Fall Stated Complaint: hip/back pain Source: patient and family Mode of arrival: ambulatory Limitations: no limitations History of Present Illness HPI Narrative: 78 years old white female came to the emergency room with her and significant other complaining of tailbone pain and right hip pain after a fall 3 days ago. patient got of the bedside commode, tried to her per her to put her clothes back, lost her balance and fell, denies head or neck injury. Complaining of increased pain at the right hip and tailbone pain. History of CVA, osteoporosis, inoperable right hip fracture , temporalis arthritis on steroid, Related Data Home Medications Medication Instructions Recorded Confirmed aspirin 81 mg tablet,delayed 81 mg PO DAILY 10/02/19 12/18/23 release (Adult Low Dose Aspirin) leflunomide 10 mg tablet 10 mg PO DAILY 11/30/22 12/18/23 multivitamin 1 tablet PO DAILY 07/14/23 12/18/23 calcium carbonate 600 mg-vitamin 1 tablet PO DAILY 10/04/23 12/18/23 D3 20 mcg (800 unit) tablet prednisone 2.5 mg tablet 2.5 mg PO DAILY 10/04/23 12/18/23 ferrous sulfate 1 tablet PO DAILY 10/23/23 12/18/23 ascorbate calcium (vitamin C) 500 500 mg PO DAILY 11/30/23 mg tablet ferrous sulfate 325 mg (65 mg 325 mg PO DAILY 11/30/23 iron) tablet (Feosol) [id number] 8 mg-folic 400 1 tablet PO DAILY 11/30/23 mcg-K 50 mcg-lutein 300 mcg tablet (Centrum Silver Women) vitamin [id number] B1 1,000 ml IM .1x2wk 11/30/23 mcg-100 mg/mL injection solution Allergies Allergy/AdvReac Type Severity Reaction Status Date / Time lidocaine Allergy Unknown Spasms Verified 11/30/23 13:38 trolamine salicylate Allergy Unknown Spasms Verified 11/30/23 13:38 [Aspercreme] tramadol AdvReac Unknown Nausea Verified 12/31/23 19:35 Review of Systems Review of Systems: All systems reviewed & are unremarkable except as noted in HPI and below PMFSH Past Medical History Medical History Arthritis of right hip AVN (avascular necrosis of bone) Chronic kidney disease Degenerative joint disease (DJD) of hip Dental infection Elevated troponin Family history of abdominal aortic aneurysm (AAA) Family history of alpha 1 antitrypsin deficiency Giant cell aortic arteritis Glaucoma Macular degeneration Nicotine dependence Osteoporosis Rheumatoid arthritis Squamous cell carcinoma Temporal arteritis TIA (transient ischemic attack) Surgical History Surgical History History of foot surgery History of oral surgery History of temporal artery biopsy Family History Family History Grandparent Family history of glaucoma Family history of aortic aneurysm Hypertension Cerebrovascular accident Diabetes mellitus Mother Family history of glaucoma, Onset Age: 93 Hypertension, Onset Age: 93 Family history of osteoporosis Father Family history of aortic aneurysm, Onset Age: 78 Hypertension, Onset Age: 78 Cerebrovascular accident Sibling GERD (gastroesophageal reflux disease) COPD (chronic obstructive pulmonary disease) Social History Social History Social History: Caffeine-coffee daily. The patient is and has no biological children. She has 2 step children. 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 Her is a durable power estate planning attorney for healthcare. The patient states she only smokes 1-2 cigarettes a day. But she has not smoked since this past Monday. Code status full code Years smoked: 50 Smoking status: Current every day smoker Tobacco type: cigarettes Second hand tobacco smoke exposure: Yes Alcohol intake: never Substance use: never Substance use type: does not use Do You Feel Safe in your Home?: Yes Lack of Tra
[2023-12-31] MEDS: MORPHINE SULFATE (*CRX) 4 MG/ML INJ IV PUSH (20:09)
[2023-12-31] MEDS: ONDANSETRON INJ 4 MG/2 ML VIAL IV PUSH (20:09)
[2023-12-31 22:15] VITALS: BP 180/90; PULSE 95; RESP 20; TEMP 37.3; O2SAT 97
== END 2023-12-31 22:30 | disposition home or self-care (01) ==
PROVIDERS: Emergency Provider Emergency Medicine; PCP Family Medicine
DX: S30.0XXA Contusion of lower back and pelvis, initial encounter (principal); S70.01XA Contusion of right hip, initial encounter; N18.9 Chronic kidney disease, unspecified; H40.9 Unspecified glaucoma; H35.30 Unspecified macular degeneration; M06.9 Rheumatoid arthritis, unspecified; M16.11 Unilateral primary osteoarthritis, right hip; M81.0 Age-related osteoporosis without current pathological fracture; F17.210 Nicotine dependence, cigarettes, uncomplicated; Z85.828 Personal history of other malignant neoplasm of skin; Z86.73 Personal history of transient ischemic attack (TIA), and cerebral infarction without residual deficits; K80.20 Calculus of gallbladder without cholecystitis without obstruction; M47.812 Spondylosis without myelopathy or radiculopathy, cervical region; M47.816 Spondylosis without myelopathy or radiculopathy, lumbar region; W18.39XA Other fall on same level, initial encounter
CPT/HCPCS: 70450; 72125; 72131; 72192; 73700; 96374; 96375; 99284; J2270; J2405